=== PATIENT | female | born 1990 | race Hispanic/Latino ===

== ENCOUNTER 2019-07-21 08:57 | Inpatient (IN) | payer SELFPAY ==
[~2019-07-21] VITALS: Ht 165.1 cm; Wt 61.2 kg
[2019-07-21] VITALS (32 sets, daily range): BP systolic 117–142; BP diastolic 67–95
[2019-07-21] MEDS ORDERED: SODIUM CHLORIDE 0.9% 1000ML 1,000 ML IV ONE ×2 (09:14→10:26)
[2019-07-21 09:47] LABS: BASOPHILS % (AUTO) 0.3 % (0.0-5.0); HEMATOCRIT 38.1 % (36-48); LYMPHOCYTES % (AUTO) 29.6 % (21.0-51.0); MEAN CORPUSCULAR HEMOGLOBIN 27.1 pg (27.0-33.0); MEAN CORPUSCULAR VOLUME 82.2 fL (79-99); MONOCYTES % (AUTO) 5.1 % (3.0-13.0); PLATELET COUNT (AUTO) 192 K/uL (130-400); RED BLOOD CELL COUNT(AUTO) 4.64 MIL/uL (4.00-5.50); RED CELL DISTRIBUTION WIDTH 13.7 % (11.0-15.5); WHITE BLOOD COUNT (AUTO) 7.1 K/uL (4.8-10.8)
[2019-07-21 09:56] LABS: CREATININE 0.7 mg/dL (0.5-1.5); POTASSIUM 3.6 mmol/L (3.5-5.1)
[2019-07-21 09:58] LABS: INR 1.04 (0.85-1.15); PROTHROMBIN TIME 10.9 SEC (9.6-11.6)
[2019-07-21 09:59] LABS: HCG,QUAL RESULT NEGATIVE (NEGATIVE)
[2019-07-21 10:02] LABS: ALBUMIN 3.7 g/dL (3.5-5.0); BILIRUBIN,TOTAL 0.8 mg/dL (0.2-1.0); TOTAL PROTEIN, SERUM 7.6 g/dL (6.0-8.3)
[2019-07-21 10:14] LABS: APPEARANCE,URINE CLOUDY (CLEAR); BILIRUBIN,URINE NEGATIVE (NEGATIVE); COLOR,URINE RED (YELLOW); GLUCOSE, URINE (UA) 500 mg/dL (NEGATIVE); KETONES,URINE >=80 mg/dL (NEGATIVE); LEUKOCYTE ESTERASE ,URINE MODERATE (NEGATIVE); NITRATE,URINE POSITIVE (NEGATIVE); OCCULT BLOOD,URINE LARGE (NEGATIVE); PROTEIN,URINE >=300 mg/dL (NEGATIVE)
[2019-07-21] MEDS ORDERED: INSULIN HUMULIN R 100 UNIT/ML 3ML ONE (10:25)
[2019-07-21 10:36] LABS: RBC,URINE TNTC /HPF (0-1)
[2019-07-21 10:36] LABS: ABG OXYGEN SATURATION 49.1 % (95.0-99.0); BASE EXCESS,VENOUS BLOOD GAS -11.7 (-2.0-3.0); HCO3,VENOUS BLOOD GAS 14.8 (21.0-28.0); PCO2,VENOUS BLOOD GAS 36 (32-45); PH,VENOUS BLOOD GAS 7.234 (7.350-7.450)
[2019-07-21 10:37] LABS: BACTERIA,URINE Moderate /HPF (None Seen)
[2019-07-21] MEDS ORDERED: SODIUM CHLORIDE 0.9% 1000ML 1,000 ML IV SCH (10:57)
[2019-07-21] MEDS ORDERED: DEXTROSE 5 %-0.45 % NACL 1,000 ML IV PRN (10:57)
[2019-07-21] MEDS ORDERED: ONDANSETRON HCL 4 MG/2 ML VIAL IV PRN (11:00)
[2019-07-21] MEDS ORDERED: ACETAMINOPHEN-CODEINE 300/30MG TAB PO PRN ×2 (11:00)
[2019-07-21] MEDS: INSULIN HUMULIN R 100 UNIT/ML 3ML IV SCH (11:00)
[2019-07-21] MEDS ORDERED: HYDRALAZINE HCL 20 MG/ML VIAL IV PRN (11:00)
[2019-07-21] MEDS ORDERED: POTASSIUM CHLORIDE 10MEQ/100ML 100 ML IV PRN (11:00)
[2019-07-21] MEDS ORDERED: CEFTRIAXONE SODIUM 1 GM ONE (11:25)
[2019-07-21] MEDS ORDERED: SODIUM CHLORIDE 0.9% 100 ML IV ONE (11:25)
[2019-07-21 11:46] LABS: HEMOGLOBIN A1C 13.7 % (4.0-6.0)
[2019-07-21 12:12] LABS: CARBON DIOXIDE 18 mmol/L (21-32); CHLORIDE 105 mmol/L (101-111); CREATININE 0.6 mg/dL (0.5-1.5); GLOMERULAR FILTR. RATE CALC 127 mL/min (>60); GLUCOSE,RANDOM 238 mg/dL (70-105); POTASSIUM 3.7 mmol/L (3.5-5.1); SODIUM SERUM 139 mmol/L (136-145); UREA NITROGEN, BLOOD 8 mg/dL (7-18)
[2019-07-21] MEDS ORDERED: INSULIN REGULAR, HUMAN 3ML 100 UNIT in SODIUM CHLORIDE 0.9% 99 ML IV PRN ×2 (14:15)
[2019-07-21] MEDS: ZOSYN 3.375GM+NS 50ML 50 ML IV SCH ×2 (14:25→21:57)
[2019-07-21] MEDS: SODIUM CHLORIDE 0.9% 1000ML 1,000 ML IV SCH ×2 (14:25→15:57)
[2019-07-21] MEDS ORDERED: MAGNESIUM 2GM PREMIX 50ML 50 ML IV ONE (14:41)
[2019-07-21] MEDS: D5W-1/2 NS/20MEQ KCL 1,000 ML IV SCH ×2 (17:10→22:35)
[2019-07-21 18:16] LABS: CREATININE 0.5 mg/dL (0.5-1.5); MAGNESIUM 1.8 mg/dL (1.80-2.40)
[2019-07-21] MEDS: FAMOTIDINE/PF 20 MG/2 ML VIAL IV SCH (21:56)
[2019-07-21] MEDS: MAGNESIUM 2GM PREMIX 50ML 50 ML IV PRN (22:05)
[2019-07-21 23:23] LABS: CREATININE 0.5 mg/dL (0.5-1.5); POTASSIUM 3.8 mmol/L (3.5-5.1)
[2019-07-22] VITALS (40 sets, daily range): BP systolic 114–148; BP diastolic 68–91
[2019-07-22 04:38] LABS: CREATININE 0.5 mg/dL (0.5-1.5); POTASSIUM 3.8 mmol/L (3.5-5.1)
[2019-07-22] MEDS: ZOSYN 3.375GM+NS 50ML 50 ML IV SCH ×3 (05:26→21:15)
[2019-07-22] MEDS: FAMOTIDINE/PF 20 MG/2 ML VIAL IV SCH (08:29)
[2019-07-22] MEDS: D5W-1/2 NS/20MEQ KCL 1,000 ML IV SCH (10:06)
[2019-07-22] MEDS ORDERED: ACETAMINOPHEN 325 MG TAB ONE (10:44)
[2019-07-22] MEDS ORDERED: ACETAMINOPHEN 325 MG TAB PO PRN (10:45)
[2019-07-22] MEDS: INSULIN HUMULIN R 100 UNIT/ML 3ML IV SCH (11:00)
[2019-07-22 12:14] LABS: CREATININE 0.4 mg/dL (0.5-1.5); POTASSIUM 3.4 mmol/L (3.5-5.1)
[2019-07-22 12:17] LABS: MAGNESIUM 1.5 mg/dL (1.80-2.40)
[2019-07-22] MEDS ORDERED: LIDOCAINE HCL-MPF 1% 2ML VIAL IV PRN (12:45)
[2019-07-22] MEDS ORDERED: POTASSIUM CHLORIDE 20MEQ/100ML 100 ML IV PRN (12:45)
[2019-07-22] MEDS ORDERED: POTASSIUM CHLORIDE 10% ELIXIR 20 MEQ/15 ML UDCUP PO PRN (12:45)
--- NOTE | 2019-07-22 13:00 | NUR ---
DR CASTELLANO OFFICE NUMBER CALLED; NO ANSWER AND GOES STRAIGHT TO [employer] WHICH STATES THEY WILL RETURN CALL IN LESS THAN [address] BAHENA MADE AWARE AND CHARGE NURSE MADE AWARE; NO FURTHER INSTRUCTIONS/ORDERS GIVEN AT THIS TIME. WILL RELAY INFORMATION TO ONCOMING NURSE
[2019-07-22] MEDS ORDERED: INSULIN HUMULIN 70/30 100 UNIT/ML 3ML SQ SCH (13:03)
[2019-07-22] MEDS: POTASSIUM CHLORIDE 20 MEQ ERTAB PO PRN ×2 (13:13→14:59)
[2019-07-22] MEDS: NS-20 MEQ KCL 1000ML 1,000 ML IV SCH ×2 (14:58→23:27)
[2019-07-22] MEDS: MAGNESIUM 2GM PREMIX 50ML 50 ML IV PRN (15:30)
--- NOTE | 2019-07-22 16:00 | NUR ---
DR BAHENA AT PATIENT BEDSIDE AND QUESTIONED PATIENT ABOUT SUICIDAL THOUGHTS; NO FAMILY MEMBERS IN ROOM; PATIENT STATES SHE IS STILL HAVING SUICIDAL THOUGHTS; PER DR BAHENA, CONTINUE 1:1 SITTER
[2019-07-22] MEDS: INSULIN HUMULIN R 100 UNIT/ML 3ML SQ SCH ×2 (16:26→21:18)
--- NOTE | 2019-07-22 18:15 | NUR ---
PATIENT TRANSFER PATIENT TRANSFERRED TO ROOM 308 AND REPORT GIVEN TO DENIA MED SURG NURSE; PATIENT'S MOTHER AT BEDSIDE
[2019-07-23] VITALS (7 sets, daily range): BP systolic 118–133; BP diastolic 73–84
[2019-07-23] MEDS: ZOSYN 3.375GM+NS 50ML 50 ML IV SCH ×3 (04:50→21:27)
[2019-07-23 05:07] LABS: BASOPHILS % (AUTO) 0.3 % (0.0-5.0); EOSINOPHILS % (AUTO) 3.4 % (0.0-8.0); HEMATOCRIT 29.3 % (36-48); LYMPHOCYTES % (AUTO) 38.5 % (21.0-51.0); MEAN CORPUSCULAR HEMOGLOBIN 27.3 pg (27.0-33.0); MEAN CORPUSCULAR HGB CONC 33.6 g/dL (32.0-36.0); MEAN CORPUSCULAR VOLUME 81.1 fL (79-99); MONOCYTES % (AUTO) 7.6 % (3.0-13.0); NEUTROPHILS % (AUTO) 50.2 % (40.0-77.0); NUCLEATED RED BLOOD CELLS 0.2 % (0.0-0.19); PLATELET COUNT (AUTO) 144 K/uL (130-400); RED BLOOD CELL COUNT(AUTO) 3.61 MIL/uL (4.00-5.50); WHITE BLOOD COUNT (AUTO) 3.7 K/uL (4.8-10.8)
[2019-07-23 05:17] LABS: CARBON DIOXIDE 22 mmol/L (21-32); CHLORIDE 111 mmol/L (101-111); CREATININE 0.5 mg/dL (0.5-1.5); GLOMERULAR FILTR. RATE CALC 156 mL/min (>60); GLUCOSE,RANDOM 157 mg/dL (70-105); PHOSPHORUS 3.2 mg/dL (2.5-4.9); POTASSIUM 3.8 mmol/L (3.5-5.1); SODIUM SERUM 142 mmol/L (136-145); UREA NITROGEN, BLOOD 2 mg/dL (7-18)
[2019-07-23] MEDS: INSULIN HUMULIN R 100 UNIT/ML 3ML SQ SCH ×4 (06:21→21:27)
[2019-07-23] MEDS: MAGNESIUM 2GM PREMIX 50ML 50 ML IV PRN (06:24)
[2019-07-23] MEDS: INSULIN HUMULIN 70/30 100 UNIT/ML 3ML SQ SCH (06:59)
[2019-07-23] MEDS: ENOXAPARIN SODIUM 40 MG/0.4 ML SYRINGE SQ SCH (09:00)
[2019-07-23] MEDS ORDERED: MAGNESIUM 2GM PREMIX 50ML 50 ML IV PRN (11:00)
[2019-07-23] MEDS: INSULIN HUMULIN R 100 UNIT/ML 3ML IV SCH (11:00)
[2019-07-23] MEDS: NS-20 MEQ KCL 1000ML 1,000 ML IV SCH ×2 (12:10→21:54)
--- NOTE | 2019-07-23 13:12 | NUR ---
RD NOTIFICATION DIET: 75GMCCD. PT NEWLY DIAGNOSED DIABETIC. PO INTAKE 100% AND HAS IMPROVING APPETITE PER PT. LBM: 07/19 NOTED. PT ON 1 TO 1 DUE TO SUICIDAL IDEATIONS. PT USUAL BODY WEIGHT IS 270# OF 1 YEAR AGO PER PT- EXPERIENCING UNINTENDED WEIGHT LOSS. RD PROVIDED DIABETIC MEDICAL NUTRITION THERAPY. PT AND MOTHER VERBALIZED UNDERSTANDING. EDUCATION MATERIALS PROVIDED TO TAKE HOME AND USE REFERENCE. RD RECOMMENDS CONTINUE CURRENT DIET OFFER GLUCERNA/ DIABETIC SNACKS BETWEEN MEALS EDUCATION MATERIALS PROVIDED RD WILL CONTINUE TO FOLLOW UP NEEDED, THANK YOU. Addendum: 07/23/19 at [address] Amended: Links added.
--- NOTE | 2019-07-23 13:18 | NUR ---
NUTRITION EDUCATION PT ON DUE TO SUICIDAL IDEATIONS. PT USUAL BODY WEIGHT IS 270# OF 1 YEAR AGO PER PT- EXPERIENCING UNINTENDED WEIGHT LOSS. RD PROVIDED DIABETIC MEDICAL NUTRITION THERAPY. PT AND MOTHER VERBALIZED UNDERSTANDING. EDUCATION MATERIALS PROVIDED TO TAKE HOME AND USE REFERENCE. Addendum: 07/23/19 at [address] Amended: Links added.
--- NOTE | 2019-07-23 18:04 | NUR ---
INITIAL: Met with pt and mother this afternoon to discuss dcp. Pt w eyes closed during assessment. Prior to admission pt was living w mom. She is independent w ambulation and ADLs. 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 Pt does not have any DME or receive services prior to admission. Per pt/mom dcp is for home. 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 Low income packet provided. CM to continue to follow and wait for Md recommendations. Addendum: 07/23/19 at 1808 by JELENA HUFFMAN Amended: Links added.
[2019-07-23] MEDS ORDERED: LACTULOSE 20 GM/30 ML UDCUP PO PRN (18:30)
[2019-07-23] MEDS: PAROXETINE HCL 20 MG TABLET PO SCH (21:28)
[2019-07-24 04:00] VITALS: BP 120/79
[2019-07-24] MEDS: ZOSYN 3.375GM+NS 50ML 50 ML IV SCH (04:40)
[2019-07-24] MEDS: NS-20 MEQ KCL 1000ML 1,000 ML IV SCH (04:40)
[2019-07-24 05:23] LABS: BASOPHILS % (AUTO) 0.4 % (0.0-5.0); EOSINOPHILS % (AUTO) 3.1 % (0.0-8.0); HEMATOCRIT 28.2 % (36-48); LYMPHOCYTES % (AUTO) 40.4 % (21.0-51.0); MEAN CORPUSCULAR HEMOGLOBIN 26.8 pg (27.0-33.0); MEAN CORPUSCULAR VOLUME 81.1 fL (79-99); MONOCYTES % (AUTO) 7.6 % (3.0-13.0); NEUTROPHILS % (AUTO) 48.5 % (40.0-77.0); PLATELET COUNT (AUTO) 145 K/uL (130-400); RED BLOOD CELL COUNT(AUTO) 3.47 MIL/uL (4.00-5.50); RED CELL DISTRIBUTION WIDTH 13.9 % (11.0-15.5); WHITE BLOOD COUNT (AUTO) 3.5 K/uL (4.8-10.8)
[2019-07-24 05:27] LABS: CREATININE 0.5 mg/dL (0.5-1.5); MAGNESIUM 1.5 mg/dL (1.80-2.40); POTASSIUM 3.9 mmol/L (3.5-5.1)
[2019-07-24] MEDS: INSULIN HUMULIN R 100 UNIT/ML 3ML SQ SCH ×2 (06:50→11:40)
[2019-07-24] MEDS: INSULIN HUMULIN 70/30 100 UNIT/ML 3ML SQ SCH (07:00)
[2019-07-24 07:17] VITALS: BP 127/85
[2019-07-24] MEDS: PAROXETINE HCL 20 MG TABLET PO SCH ×2 (08:49→11:36)
[2019-07-24] MEDS: ENOXAPARIN SODIUM 40 MG/0.4 ML SYRINGE SQ SCH ×2 (08:50→08:53)
[2019-07-24] MEDS: MAGNESIUM 2GM PREMIX 50ML 50 ML IV PRN (08:51)
[2019-07-24 10:47] VITALS: BP 140/84
[2019-07-24] MEDS: INSULIN HUMULIN R 100 UNIT/ML 3ML IV SCH (11:00)
--- NOTE | 2019-07-24 11:26 | NUR ---
DR BERNAL 1:1 ORDER: SPOKE TO NUZHAT/NURSE FOR DR Chavez REGARDING IF 1:1 ORDER CAN BE DCD, PENDING CB FROM DR Chavez
[2019-07-24] MEDS ORDERED: INSULIN HUMULIN 70/30 100 UNIT/ML 3ML SQ SCH ×2 (11:30→16:30)
[2019-07-24] MEDS ORDERED: EPOETIN ALFA 10,000 UNIT/ML VIAL SQ SCH (11:30)
--- NOTE | 2019-07-24 11:41 | NUR ---
RD FOLLOW UP RD RECEIVED MD CONSULT TO PROVIDE DIABETES NUTRITION EDUCATION, HOWEVER EDU WAS PROVIDED YESTERDAY 07/23/19. EDUCATION MATERIALS WERE ALSO PROVIDED. PLEASE CALL US AT EXT 1909 IF PT HAS ANY OTHER QUESTIONS OR CONCERNS. THANK YOU. Addendum: 07/24/19 at [address] Amended: Links added.
--- NOTE | 2019-07-24 11:45 | NUR ---
spoke to dr ordonez as per dr roland ok to dc one to one and cleared from his standpoint. send home with robert.
[2019-07-24] MEDS ORDERED: COMPOUND IV MISC 1 EACH IVSOLN MISC PRN (12:30)
--- NOTE | 2019-07-24 15:40 | NUR ---
DR BAHENA ROUNDS/AMA DR BAHENA ROUNDED AT THIS TIME AND EXPRESSED TO PT THAT HE RECOMMENDS STAYING ANOTHER DAY TO ADJUST INSULIN AND OBSERVE SUGAR LEVEL CHANGES WITH NEW INSULIN TO WHICH PT REFUSED TO STAY ANOTHER NIGHT AND STATED SHE "CANT" STAY "TRAPPED" HERE. DR BAHENA AND THIS NURSE ATTEMPTED TO REDIRECT PT AND PERSUADE PT TO STAY, EDUCATED ON RISKS OF LEAVING AMA, PT REFUSES. AMA FORM SIGNED AND PLACED IN CHART. MOTHER AT BEDSIDE
[2019-07-25] MEDS ORDERED: IRON SUCROSE COMPLEX 500 MG in SODIUM CHLORIDE 0.9% 250 ML IV SCH (09:00)
== END 2019-07-24 15:55 | disposition left against medical advice (07) | DRG 638 ==
LOC: EDH 08:57 → EDHIP 08:58 → 2BH 13:27 → 3BH 07-22 18:29
PROVIDERS: ADMIT Internal Medicine; ATTEND Internal Medicine
DX: E11.10 Type 2 diabetes mellitus with ketoacidosis without coma (principal); E87.1 Hypo-osmolality and hyponatremia; N17.9 Acute kidney failure, unspecified; N30.00 Acute cystitis without hematuria; R45.851 Suicidal ideations; E86.1 Hypovolemia; N93.9 Abnormal uterine and vaginal bleeding, unspecified; N92.0 Excessive and frequent menstruation with regular cycle; E83.42 Hypomagnesemia; F40.10 Social phobia, unspecified; D50.0 Iron deficiency anemia secondary to blood loss (chronic); Z88.8 Allergy status to other drugs, medicaments and biological substances; Z91.013 Allergy to seafood; Z87.891 Personal history of nicotine dependence; Z83.3 Family history of diabetes mellitus; Z82.49 Family history of ischemic heart disease and other diseases of the circulatory system
CPT/HCPCS: 36415; 36600; 76856; 80048; 80053; 81001; 81025; 82010; 82803; 82948; 83036; 83605; 83735; 84100; 84145; 85025; 85610; 85730; 86850; 86900; 86901; 87040; 87088; G0378; J0696; J0885; J1756; J1815; J2543; J3475; J3480; J3490; J7030; J7042

== ENCOUNTER 2025-06-08 21:34 | Inpatient (IN) | payer SELFPAY ==
[~2025-06-08] VITALS: Ht 167.6 cm; Wt 92.6 kg
[2025-06-08 21:51] LABS: ABG OXYGEN SATURATION 71.6 % (94.0-98.0); BASE EXCESS,VENOUS BLOOD GAS -27.3 (-2.0-3.0); DEVICE COMMENT LB,RN JOSE; HCO3,VENOUS BLOOD GAS 3.6 (22.0-29.0); PCO2,VENOUS BLOOD GAS 17 (38-54); PH,VENOUS BLOOD GAS < 6.960 (7.320-7.430); PO2,VENOUS BLOOD GAS 44.9 mmHg (23.0-48.0); TEMPERATURE, CELSIUS BG 37.0 CELSIUS (35.5-37.0); VENT MODE, BG RA (ROOM AIR)
--- NOTE | 2025-06-08 22:01 | EKG ---
[facility] Test Date: 2025-06-08 Test Time: 21:51:53 Pat Name: PEYTON SERRA Department: ED Room: 427 Gender: F Assisted Living Nursing Director: [id number] : 1990 Requested By: ALEXIS SANDS Order Number: [id number] Reading MD: Brant Leon Measurements Intervals [place] Rate: 113 P: 77 AR: 147 QRS: 92 QRSD: 109 T: 2 QT: 355 QTc: 487 Interpretive Statements Sinus tachycardia Probable left atrial enlargement No previous ECG available for comparison Electronically Signed On 06-10-2025 16:07:59 CDT by Brant Leon Please click the below link to view image of tracing.
[2025-06-08] MEDS: 0.9%NACL 1000ML 1,000 ML IV ONE (22:13)
[2025-06-08] MEDS: 0.9%NACL 1000ML 2,000 ML IV ONE (22:13)
[2025-06-08 22:15] LABS: IMMATURE GRANULOCYTE ABSOLUTE 0.15 K/uL (0-1); NUCLEATED RED BLOOD CELLS 0.0 % (0.0-0.19); PLATELET COUNT (AUTO) 319 K/uL (130-400); RED BLOOD CELL COUNT(AUTO) 4.50 MIL/uL (4.00-5.50); RED CELL DISTRIBUTION WIDTH 13.6 % (11.0-15.5); WHITE BLOOD COUNT (AUTO) 19.7 K/uL (4.8-10.8)
[2025-06-08] MEDS: CALCIUM GLUC 1GM 1 GM in 0.9%NACL 100ML 100 ML IV ONE (22:18)
[2025-06-08] MEDS ORDERED: VANCOMYCIN PROTOCOL PER PHARMACY IV SCH (22:30)
[2025-06-08] MEDS ORDERED: D5W-1/2 NS/20MEQ KCL 1,000 ML IV SCH (22:30)
[2025-06-08 22:34] LABS: ASPARTATE AMINOTRANSFERASE 11 U/L (10-37); CREATININE 1.8 mg/dL (0.5-1.0); GLOMERULAR FILTR. RATE CALC 37 mL/min (>90); SODIUM SERUM 133 mmol/L (136-145); TOTAL PROTEIN, SERUM 8.6 g/dL (6.0-8.3); UREA NITROGEN, BLOOD 27 mg/dL (7-18)
[2025-06-08 22:42] LABS: GLUCOSE,RANDOM 692 mg/dL (70-105)
[2025-06-08 22:48] LABS: INR 0.97 (0.85-1.15)
[2025-06-08] MEDS: 0.9%NACL 1000ML 1,000 ML IV SCH (22:55)
[2025-06-08] MEDS ORDERED: NS-20 MEQ KCL 1000ML 1,000 ML IV SCH (23:00)
--- NOTE | 2025-06-08 23:00 | ERN ---
General Chief Complaint: Hyperglycemia Stated Complaint: N/V X 2 DAYS, HYPERGLYCEMIA PER EMS, BG=HI Time Seen by MD: 21:37 Time Seen by Midlevel: 21:37 Source: patient, EMS History of Present Illness Initial Comments 34-year-old female with a past medical history of type 2 diabetes presents to the emergency department for evaluation of two days of nausea and vomiting. Patient initially thought she was experiencing a hangover but symptoms have not improved. Per EMS the glucometer is reading as high. Allergies: Coded Allergies: shellfish derived (Unverified Allergy, Severe, SWELLING, 07/21/19) swelling shrimp (Unverified Allergy, Severe, SWELLING, 07/21/19) of the throat iodine (Verified Allergy, Unknown, 07/21/19) Home Meds No Active Prescriptions or Reported Meds Past Medical History Past Medical History: Diabetes-Type II, Hypertension Past Surgical History: None ROS Dictation CONSTITUTIONAL: Negative except for HPI HEAD/FACE: Negative except for HPI EENT: Negative except for HPI RESPIRATORY: Negative except for HPI GASTROINTESTINAL/ABDOMINAL: Negative except for HPI GENITOURINARY: Negative except for HPI MUSCULOSKELETAL: Negative except for HPI INTEGUMENTARY: Negative except for HPI NEUROLOGICAL/PSYCH: Negative except for HPI HEMATOLOGIC/LYMPHATIC: Negative except for HPI All Systems Negative, Except as noted above. 13 point review of systems assessed and all negative except for above. Physical Exam Physical Exam Dictation Vital Signs reviewed General Appearance: Alert, ill-appearing, febrile Head and Face: non-traumatic. Eyes: PERRL, pink conjunctivas, eyelid no trauma, anterior chamber with arcus senilis. Ears: Pinnas intact and no signs of trauma or erythema ear canals clear and no discharge TM no erythema Nose: No discharge, no bleeding. Oropharynx: Mouth normal, tongue pink, pharynx clear,no erythema, tonsils no exudates, no abscesses noted, mucous membrane moist Neck: Supple, non-tender, no thyromegaly, no masses, no JVD, no bruits Breast:Deferred Chest:No tenderness, no crepitus, no paradoxical movement, no retractions Lungs:Clear, well-ventilated, symmetric, no rales, no wheezing, Kussmaul respirations Heart: Tachycardic, regular rhythm, no murmur, no gallops Vascular: no peripheral edema, Abdomen: Soft, positive bowel sounds, nondistended, no guarding, nontender, no rebound, no masses no hepatomegaly, no splenomegaly, no Tian's sign, no hernias. Rectal: Deferred Genital: Deferred Neurological: Normal speech, motor function intact, sensory function intact Musculoskeletal: Neck nontender, full range of motion, back nontender, full range of motion, Extremities: nontender, full range of motion Skin: Color pink, dry, no turgor, no rash, no lacerations, no abrasions, no contusions. Lymphatic: Deferred Results Laboratory and Microbiology Lab and Micro Result Laboratory Tests Test 06/08/25 21:50 06/08/25 22:03 Blood Gas Specimen Type Venous Arterial Blood Oxygen Saturation 71.6 % (94.0-98.0) L Venous Blood pH < 6.960 (7.320-7.430) Venous Blood pCO2 at Patient Temp 17 (38-54) *L Venous Blood pO2 at Patient Temp 44.9 mmHg (23.0-48.0) Venous Blood HCO3 3.6 (22.0-29.0) L Venous Blood Base Excess -27.3 (-2.0-3.0) L Venous Blood Total Hemoglobin 13.7 (12.0-16.0) Sodium (Blood Gas) 137 MMOL/L (136-145) Bedside Potassium (Blood Gas) 6.8 MMOL/L (3.4-4.5) *H Bedside Chloride (Blood Gas) 98 MMOL/L (98-107) Bedside Glucose (Blood Gas) > 660 MG/DL (65-95) *H Bedside Ionized Calcium (Blood Gas) 1.33 MMOL/L (1.15-1.33) Bedside Lactic Acid (Blood Gas) 3.04 MMOL/L (0.36-0.75) *H Blood Gas Temperature 37.0 CELSIUS (35.5-37.0) Blood Gas Vent Mode RA (ROOM AIR) FiO2 21.0 % Blood Gas Specimen Comment LB,RN NOHELIA White Blood Count 19.7 K/uL (4.8-10.8) H Red Blood Count 4.50 MIL/uL (4.00-5.50) Hemoglobin 12.7 g/dL (12.0-16.0) Hematocrit 43.1 % (36-48) Mean Corpuscular Volume 95.8 fL (79-99) Mean Corpuscular Hemoglobin 28.2 pg (27.0-33.0) Mean Corpuscular Hemoglobin Concent 29.5 g/dL (32.0-36.0) L Red Cell Distribution Width 13.6 % (11.0-15.5) Platelet Count 319 K/uL (130-400) Mean Platelet Volume 11.0 fL (7.5-10.5) H Immature Granulocyte % (Auto) 0.8 % (0-1) Neutrophils (%) (Auto) 90.5 % (40.0-77.0) H Lymphocytes (%) (Auto) 2.7 % (21.0-51.0) L Monocytes (%) (Auto) 5.6 % (3.0-13.0) Eosinophils (%) (Auto) 0.1 % (0.0-8.0) Basophils (%) (Auto) 0.3 % (0.0-5.0) Neutrophils # (Auto) 17.9 K/uL (1.8-7.7) H Lymphocytes # (Auto) 0.5 K/uL (1.0-4.8) L Monocytes # (Auto) 1.1 K/uL (0.1-1.0) H Eosinophils # (Auto) 0.01 K/uL (0.00-0.70) Basophils # (Auto) 0.05 K/uL (0.00-0.20) Absolute Immature Granulocyte (auto 0.15 K/uL (0-1) Nucleated Red Blood Cells 0.0 % (0.0-0.19) Prothrombin Time 10.3 SEC (9.6-11.6) Prothromb Time International Ratio 0.97 (0.85-1.15) Activated Partial Thromboplast Time 30.3 SEC (26.3-35.5) Sodium Level 133 mmol/L (136-145) L Potassium Level 6.7 mmol/L (3.5-5.1) *H Chloride Level 91 mmol/L (101-111) L Carbon Dioxide Level < 5 mmol/L (21-32) *L Blood Urea Nitrogen 27 mg/dL (7-18) H Creatinine 1.8 mg/dL (0.5-1.0) H Glomerular Filtration Rate Calc 37 mL/min (>90) Random Glucose 692 mg/dL (70-105) *H Whole Blood Ketones Quantitative 6.5 mmol/L (0.0-0.6) H Lactic Acid Level 3.3 mmol/L (0.8-2.5) H Total Calcium 8.9 mg/dL (8.5-10.1) Total Bilirubin 0.7 mg/dL (0.2-1.0) Direct Bilirubin 0.2 mg/dL (0.0-0.3) Aspartate Amino Transf (AST/SGOT) 11 U/L (10-37) Alanine Aminotransferase (ALT/SGPT) 21 U/L (12-78) Alkaline Phosphatase 145 U/L (50-136) H Troponin I High Sensitivity < 4 ng/L (4-50) L Total Protein 8.6 g/dL (6.0-8.3) H Albumin 4.1 g/dL (3.5-5.0) Lipase 12 U/L (16-77) L Labs Reviewed?: Yes MDM MDM: Differential diagnosis: Sepsis, DKA, HHS Rationale: Tests considered and ordered secondary to shared decision making include: Previous outside records reviewed: Old ER visits. Risk of complication and/or morbidity or mortality of patient management: None Medications-Per medication reconciliation Need for hospitalization: Patient does meet criteria for hospitalization. Need for emergency major/minor surgery: No There are no social concerns with this patient. Prescription drug management Prescriptions will include symptomatic care Patient's prior external medical records from other ER visits were reviewed by me as indicated. Prior testing and results from previous visits were reviewed. Prior tests were taken into account with medical decision making and resource utilization, independent historian/historians were used to obtain complete [facility] history. I independently interpreted the test that were performed, results were reviewed by me and considered findings on radiology if ordered. Medical management and examination interpretation discussions were had by me with other qualified healthcare professionals as indicated for the patient's care. ED Course Orders Procedure Category Date Status Time Cbc With Differential LAB 06/08/25 In Process 21:46 Basic Metabolic Panel LAB 06/08/25 Complete 21:46 Lipase LAB 06/08/25 Complete 21:46 Hepatic Function Panel LAB 06/08/25 Complete 21:46 Urinalysis Profile LAB 06/08/25 In Process 21:46 Blood Cult MJ 06/08/25 Logged 21:46 Lactic Acid LAB 06/08/25 Complete 21:46 12 Lead Ekg Tracing- EKG 06/08/25 Complete Technical 21:46 Troponin I High LAB 06/08/25 Complete Sensitivity 21:46 Testing, LAB 06/08/25 In Process Serum Hcg 21:46 Ketone Blood LAB 06/08/25 Complete Quantitative 21:46 Venous Blood Gas + RT 06/08/25 Transmitted 21:46 Venous Blood Gas Plus LAB 06/08/25 Complete 21:50 0.9%Nacl 1000ml (Ns PHA 06/08/25 Complete 1000ml) 22:00 0.9%Nacl 1000ml (Ns PHA 06/08/25 Complete 1000ml) 22:00 Pt And Ptt LAB 06/08/25 Complete 21:56 Calcium Gluc 1gm PHA 06/08/25 In Process (Calcium Gluc 1gm 22:00 Chest 1vw RAD 06/08/25 Taken 22:00 Vancomycin Protocol PHA 06/08/25 Logged (Vancomycin Protocol 22:30 Cefepime Hcl 1 Gm PHA 06/08/25 In Process Vial (Maxipime 1 Gm Vi 22:30 Dka Prtcl:Restrict To CPOE 06/08/25 Transmitted Icu/Ccu 22:21 Dka Protcl:Dc All CPOE 06/08/25 Transmitted Meds/Feeding 22:21 Dka Protocol: Bmp Q4h CPOE 06/08/25 Transmitted Until 22:21 0.9%Nacl 1000ml (Ns PHA 06/08/25 In Process 1000ml) 22:30 D5w-1/2 Ns/20meq Kcl PHA 06/08/25 In Process (D5w-1/2 Ns/20meq K 22:30 Ns-20 Meq Kcl 1000ml PHA 06/08/25 In Process (Ns-20 Meq Kcl 1000 23:00 Magnesium 2gm Premix PHA 06/08/25 In Process 50ml (Magnesium 2gm 22:30 Insulin Regular, PHA 06/08/25 In Process Human 3ml (Humulin R 22:30 Dka Protocol: Bs, Vs, CPOE 06/08/25 Transmitted Neuro 22:21 Dextrose 5 %-0.45 % PHA 06/08/25 In Process Nacl (D5 1/2ns) 22:30 Nurse Driven [place] JAN 06/08/25 In Process Removal Pro 22:38 Vancomycin 2gm/500 Ml PHA 06/08/25 In Process Bag (Vancomycin 2g 23:00 Current Medications Medications (Trade) Dose Ordered Sig/Eric Route PRN Reason Start Time Stop Time Status Last Admin Dose Admin Calcium Gluconate 1 gm/Sodium Chloride 110 ml @ 110 mls/hr ONCE ONCE IV 06/08/25 22:00 06/08/25 22:59 06/08/25 22:18 Cefepime HCl (MAXipime 1 GM vial) 1 gm Q12H IVPB 06/08/25 22:30 06/18/25 22:29 06/08/25 22:52 Dextrose/Sodium Chloride 1,000 ml @ 0 mls/hr AD IV 06/08/25 22:30 07/08/25 22:29 Insulin Human Regular 100 unit/ Sodium Chloride 101 ml @ 0 mls/hr PROTOCOL IV 06/08/25 22:30 07/08/25 22:29 Magnesium Sulfate 50 ml @ 0 mls/hr PROTOCOL IV 06/08/25 22:30 07/08/25 22:29 Potassium Chloride/Dextrose/ Sod Cl 1,000 ml @ 0 mls/hr AD IV 06/08/25 22:30 07/08/25 22:29 Potassium Chloride/Sodium Chloride 1,000 ml @ 0 mls/hr PROTOCOL IV 06/08/25 23:00 07/08/25 22:59 Sodium Chloride 1,000 ml @ 0 mls/hr ONCE ONCE IV 06/08/25 22:00 06/08/25 22:02 DC 06/08/25 22:13 Sodium Chloride 1,000 ml @ 200 mls/hr PROTOCOL IV 06/08/25 22:30 07/08/25 22:29 06/08/25 22:55 Sodium Chloride 2,000 ml @ 0 mls/hr Q0M ONCE IV 06/08/25 22:00 06/08/25 22:02 DC 06/08/25 22:13 Vancomycin HCl 500 ml @ 250 mls/hr ONCE ONCE IV 06/08/25 23:00 06/09/25 00:59 Vancomycin HCl (Vancomycin Protocol) 1 each AD IV 06/08/25 22:30 06/22/25 22:29 UNV Vital Signs Date Time Temp Pulse Resp B/P (MAP) Pulse Ox O2 Delivery O2 Flow Rate FiO2 06/08/25 22:52 116 30 159/87 99 Room Air* 0 21 10/10/25 22:22 117 32 153/96 100 Room Air* 0 21 06/08/25 22:08 116 30 98 Room Air* 0 21 06/08/25 22:00 99.1 117 29 136/83 98 Room Air 0 Procedure Dictation Total critical care time: Approximately 45 minutes Due to a high probability of clinically significant, life threatening deterioration, the patient required my highest level of preparedness to int ervene emergently and I personally spent this critical care time directly and personally managing the patient. This critical care time included obtaining a history; examining the patient; pulse oximetry; ordering and review of studies; arranging urgent treatment with development of a management plan; evaluation of patient's response to treatment; frequent reassessment; and, discussions with other providers. This critical care time was performed to assess and manage the high probability of imminent, life-threatening deterioration that could result in multi-organ failure. It was exclusive of separately billable procedures and treating other patients and teaching time. Please see MDM section and the rest of the note for further information on patient assessment and treatment. DX & DISP Disposition: Inpatient Departure Impression: Primary Impression: Sepsis Additional Impressions: DKA (diabetic ketoacidosis), Leukocytosis, JAYLIN (acute kidney injury), Hyperkalemia Critical Time: 45 minutes Condition: Stable Scripts No Active Prescriptions or Reported Meds Referrals: SELF,REFERRAL (PCP) I have reviewed the case, and I agree with, Diagnosis and Plan I performed the substantive portion of the visit. I have reviewed and personally made and approve the management plan that is documented in the note by myself or the CINDI. I acknowledge for responsibility for the patient's management plan. ALEXIS SANDS PAC Jun 08, 2025 23:00
--- NOTE | 2025-06-08 23:01 | HP ---
History of Present Illness Reason for Visit: n/v Referring MD: Self History of Present Illness Ms. Monae is a 34-year-old female that was seen and examined today on 06/08/2025. Patient is a good historian of personal health Patient reports that she came to the emergency department with a chief complaint of nausea and vomiting. Onset was two days ago. Location is abdominal. Duration is on and off. Character is described as watery. There was no alleviating factors. The symptoms are aggravated with eating or drinking. Patient reports associated elevated glucose. Today in the emergency department WBCs 19.7, left shift neutrophils 90.5%, potassium 6.7, BUN 27, creatinine 1.8, glucose 682 mg/dL, lactic acid 3.3, ketones 6.5, urinalysis has elevated ketones 150, ABG shows pH 6.960. Additionally vital signs showed heart rate of 117, respirations 29, together with WBCs of 19.7 lactic acid of 3.3 patient met clinical sepsis criteria although most likely this is a DKA presentation patient will be treated with a empiric antibiotic therapy and we will deescalate antimicrobial therapy if blood cultures negative. Past Medical History Patient History: Cardiovascular disease Grandfather Diabetes mellitus FATHER BROTHER BROTHER Hypertension FATHER ADDITIONAL PAST MEDICAL HISTORY: [Diabetes mellitius type2 diagnosed at the age of 28, hypertension] SOCIAL HISTORY: [Negative for tobacco use. Patient drinks alcohol every other day usually four five shots of vodka. Patient admits to daily marijuana use. Patient denies any other illegal drug use. Patient is typically independent of all her ADLs. Patient lives with her , John Mora. Patient denies difficulty paying her bills.] SURGICAL HISTORY: [Denies] Review of Systems General: No Fever, No Chills, No Night Sweats, No Fatigue, No Malaise, No Appetite, No Other HEENT: No Head Aches, No Visual Changes, No Eye Pain, No Ear Pain, No Dysphasia, No Sinus Congestion, No Post Nasal Drip, No Sore Throat, No Other Pulmonary: No Dyspnea, No Cough, No Pleuritic Chest Pain, No Other Cardiovascular: No: Chest Pain, Palpitations, Orthopnea, Paroxysmal Noc. Dyspnea, Edema, Lt Headedness, Other Gastrointestinal: Nausea, Vomiting; No: Abdominal Pain, Diarrhea, Constipation, Melena, Hematochezia, Other Genitourinary: No Dysuria, No Frequency, No Incontinence, No Hematuria, No Retention, No Other Musculoskeletal: No: other, neck pain, shoulder pain, arm pain, back pain, hand pain, leg pain, foot pain Skin: No Urticaria, No Rash, No Other Neurological: No: Weakness, Numbness, Incoordination, Change in speech, Confusi on, Seizures, Other Allergies: Coded Allergies: shellfish derived (Unverified Allergy, Severe, SWELLING, 07/21/19) swelling shrimp (Unverified Allergy, Severe, SWELLING, 07/21/19) of the throat iodine (Verified Allergy, Unknown, 07/21/19) No Active Prescriptions or Reported Meds Exam Vital Signs Vital Signs Date Time Temp Pulse Resp B/P (MAP) Pulse Ox O2 Delivery O2 Flow Rate FiO2 06/08/25 22:52 116 30 159/87 99 Room Air* 0 21 06/08/25 22:00 99.1 General Appearance: Alert, Oriented X3, Cooperative, moderate distress HEENT: Atraumatic, EOMI Respiratory: Clear to auscultation, Normal air movement, NL respiratory effort, Other (Positive tachypnea) Cardiovascular: Normal S1, Normal S2, Other (Positive tachycardia) Abdominal: Normal bowel sounds, Soft, No tenderness Extremities: No edema Skin: No significant lesion Neuro: Normal speech, Strength at 5/5 X4 ext, Sensation intact, Cranial nerves 3-12 NL Psych/Mental Status: Mental status NL, Mood NL, Thoughts/Content NL Assessment/Plan ASSESSMENT: [ Diabetic ketoacidosis, POA Sepsis, POA, by clinical sepsis criteria, heart rate 117, WBCs 19.7, respirations 29, lactic acid 3.3 Leukocytosis, POA Hyperkalemia, POA Hyperlactatemia, POA JAYLIN versus CKD, POA, last known baseline creatinine is from 2019 hypertension PLAN: [ Admit patient to intensive care unit as inpatient status. Place patient on telemetry monitoring. Patient will be followed by critical care service. DKA: Electrolytes, magnesium, phosphorus every 4 hours Bedside glucose every hour If potassium level above 5.3 check potassium every 2 hours Insulin drip per DKA protocol IV fluids per DKA protocol Potassium replacement per DKA protocol Magnesium replacement per hospital protocol Phosphorus replenishment per hospital DKA protocol Bicarbonate replenishment by hospital DKA protocol Keep patient n.p.o. Consider resuming diet once patient's anion gap is 14 or less Sepsis, leukocytosis, hyperlactatemia: Patient received fluid resuscitation with 0.9% NS 3 L IV in the emergency department Empiric antibiotic therapy with Zosyn Check procalcitonin, follow up with the results Check lactic acid, in a.m. follow up with the results Check blood culture, follow up with the results Reviewed patient's urinalysis which was unremarkable Reviewed patient's chest x-ray which was unremarkable Deescalate empiric antibiotic therapy if blood culture negative and no other sources of infection are identified. Hyperkalemia: Monitor patient's labs per DKA protocol JAYLIN versus CKD: Calculate FENA Check urine sodium, creatinine, osmolality Avoid nephrotoxic agents when possible Renally dose all medications when possible Consider consulting Nephrology service if any worsening renal function or evidence of ATN. Monitor patient's labs. Weight patient daily. Monitor intake and output. Hypertension: Consider resuming home medications once they have been reconciled. At time of admission home medications has been reconciled. For now: Hydralazine 10 mg IV every 4 hours for systolic blood pressure greater than 160 mmHg GI prophylaxis, Protonix DVT prophylaxis, heparin Critical Care Time: I spent ___51___ minutes of critical care time with the patient. I reviewed lab work, change the patient's medication, and coordinated protocol in the event of tachycardia or desaturation. The patient status remains unchanged ADVANCED CARE PLANNING 1. Which of the following were discussed? Hospice Care - Yes Therapeutic options - yes Advance Directives - Yes - patient states he does not have any advance directives in place at this time, however has been, John can make decisions for her if she becomes unable. Other discussions - patient wishes to remain a full code at this time 2. Discussed with who? Patient 3. Voluntary nature of this service was explained to the patient? Yes 4. Amount of time spent - ___16 minutes____ 5. Reviewed by Physician? (if this service was performed by NPP) Yes This document was generated in part using voice recognition software, occasional wrong word or sound alike substitutions may have occurred due to the inherent limitations of voice recognition software. Read the chart carefully and recognize using context, where the substitutions have occurred. Although every effort was made to edit the content, switching operator and typing errors may occur ATTESTATION BY PHYSICIAN I have seen and examined the patient. I reviewed the documentation, medical decision making, and treatment plan as noted by the mid-level provider above. I agree with the findings and plan of care. ] CARLY DE [facility] Jun 08, 2025 23:01
[2025-06-08 23:07] LABS: APPEARANCE,URINE CLEAR (CLEAR); GLUCOSE, URINE (UA) >=1000 mg/dL (NEGATIVE); LEUKOCYTE ESTERASE ,URINE NEGATIVE Leu/uL (NEGATIVE); NITRATE,URINE NEGATIVE (NEGATIVE); OCCULT BLOOD,URINE +- (TRACE) (NEGATIVE); SQUAMOUS EPITHELIAL CELL,UR RARE /HPF (0-2); YEAST,URINE BUDDING RARE /HPF (None Seen)
[2025-06-08] MEDS: INSULIN REGULAR, HUMAN 3ML 100 UNIT in 0.9%NACL 100ML 100 ML IV SCH (23:14)
--- NOTE | 2025-06-08 23:17 | HMCIMG ---
EXAM: CR Chest, 1 view CLINICAL HISTORY: Sepsis. COMPARISON: None provided. FINDINGS: The lungs show no infiltrates or other acute findings. No pleural effusion or pneumothorax. The cardiomediastinal silhouette is within normal limits. No acute osseous abnormality. IMPRESSION: No acute cardiopulmonary process is evident. /[place]
--- NOTE | 2025-06-08 23:28 | NUR ---
CRITICAL CARE CALLED FOR CONSULT.
[2025-06-09] VITALS (89 sets, daily range): BP systolic 121–158; BP diastolic 66–88; PULSE 86–120; RESP 14–29; TEMP 98–99.4; O2SAT 100
[2025-06-09] MEDS: VANCOMYCIN 2GM/500 ML BAG 500 ML IV ONE (00:09)
[2025-06-09] MEDS: LACTATED RINGERS 1000ML 1,000 ML IV ONE (00:10)
--- NOTE | 2025-06-09 00:40 | NUR ---
ARRIVED AT BEDSIDE.
[2025-06-09] MEDS ORDERED: LACTULOSE 20 GM/30 ML UDCUP PO PRN (01:00)
[2025-06-09 01:40] LABS: CREATININE,URINE RANDOM 14.19 mg/dL (30-135)
[2025-06-09] MEDS: ZOSYN 3.375GM +NS 50ML IV SCH (02:23)
[2025-06-09] MEDS: LACTATED RINGERS 1000ML 1,000 ML IV SCH (02:23)
--- NOTE | 2025-06-09 02:57 | CONS ---
[facility] CONSULTATION NOTE Date Patient Seen: Jun 09, 2025 Time of Visit: 02:46 Supervising Physician: Dr Henrik Pope Reason for Consultation: DKA Consulting Physician: Hospitalist Outpatient Specialists: [ ] Inpatient Consults: [ ] PROBLEM LIST: Diabetic ketoacidosis, POA High anion gap metabolic acidosis, POA Electrolyte abnormality, POA DM type 1, POA Hyperkalemia, POA Hyponatremia, POA Acute kidney injury, from volume depletion, POA Leukocytosis, likely from volume depletion, afebrile, UA negative for nitrites and leuko esterase, chest x-ray clear for infiltrates, POA Alcohol use, per patient she drinks vodka almost 1 L prior to admission Intractable nausea and vomiting PLAN: Continue ICU routine care NPO for now except ice chips Continue insulin drip Continue IV fluids Serial BMP per DKA protocol Replete electrolyte accordingly Monitor temperature curve Treat fever aggressively CBC, CMP, magnesium level daily HPI: 34-year-old female with past medical history of DM type one who presented to ED with complaint of nausea and vomiting and diffuse abdominal pain and found to have DKA, high anion gap metabolic acidosis, acute kidney injury, and hyperkalemia. Patient was seen and examined in ICU with present at bedside. Apparently patient symptoms started two days ago with associated nausea and vomiting, and worsening diffuse abdominal pain. Prior to this one patient had also a drinking spree wherein she consumes almost1 L of vodka. Her symptoms did not improve so she decided to come to ED for further medical evaluation. In ED her initial chemistry showed sodium of 133, potassium was 6.8, bicarb less than five, creatinine level of 1.8, and serum glucose above 600. UA was done and showed ketonuria, and her lactic acid was also elevated. Patient was subsequently started on insulin drip and was given3 L of IV bolus in ED. ICU consulted for critical care evaluation and DKA management. At present patient is hemodynamically stable, positive for ketone breaths, sinus tach on the monitor, not in acute respiratory distress, with adequate systolic blood pressure, afebrile, and with appropriate O2 saturation on room air. Patient denies any headache, chest pain, shortness of breath, fever, cough, but complains of extreme thirst, mild diffuse abdominal pain, and periodic nausea. PAST MEDICAL HX: see above PAST SURGICAL HX: noncontributory SOCIAL HISTORY: See HPI Coded Allergies: shellfish derived (Unverified Allergy, Severe, SWELLING, 07/21/19) swelling shrimp (Unverified Allergy, Severe, SWELLING, 07/21/19) of the throat iodine (Verified Allergy, Unknown, 07/21/19) REVIEW OF SYSTEMS: 12 point ROS reviewed with patient. Pertinent positives mentioned above. Otherwise negative. PHYSICAL EXAM: GENERAL: alert, weak, awake oriented x 3 HEENT: EOMI, Sclera non icteric, moist mucosa NECK: Supple, no JVD, trachea midline LUNGS: Clear breath sounds bilaterally. No wheezes, noticeable ketone breaths HEART: Sinus tach on the monitor Normal S1 and S2, without murmurs ABD: Mild diffuse abdominal discomfort EXT: No clubbing cyanosis or edema NEURO: Alert and oriented to person, follows commands Vital Signs (last 8hr) Date Time Temp Pulse Resp B/P (MAP) Pulse Ox O2 Delivery O2 Flow Rate FiO2 06/09/25 01:54 98.1 117 29 134/66 100 Room Air 06/09/25 01:39 119 26 142/78 100 Room Air 06/09/25 01:24 120 29 145/77 100 Room Air 06/09/25 00:37 118 30 158/87 100 Room Air* 0 21 06/08/25 23:24 111 30 148/69 99 Room Air* 0 21 06/08/25 22:52 116 30 159/87 99 Room Air* 0 21 06/08/25 22:22 117 32 153/96 100 Room Air* 0 21 06/08/25 22:08 116 30 98 Room Air* 0 21 06/08/25 22:00 99.1 117 29 136/83 98 Room Air 0 LABS: Hematology Labs: Test 06/08/25 22:03 Range/Units White Blood Count 19.7 H 4.8-10.8 K/uL Red Blood Count 4.50 4.00-5.50 MIL/uL Hemoglobin 12.7 12.0-16.0 g/dL Hematocrit 43.1 36-48 % Mean Corpuscular Volume 95.8 79-99 fL Mean Corpuscular Hemoglobin 28.2 27.0-33.0 pg Mean Corpuscular Hemoglobin Concent 29.5 L 32.0-36.0 g/dL Red Cell Distribution Width 13.6 11.0-15.5 % Platelet Count 319 130-400 K/uL Mean Platelet Volume 11.0 H 7.5-10.5 fL Immature Granulocyte % (Auto) 0.8 0-1 % Neutrophils (%) (Auto) 90.5 H 40.0-77.0 % Lymphocytes (%) (Auto) 2.7 L 21.0-51.0 % Monocytes (%) (Auto) 5.6 3.0-13.0 % Eosinophils (%) (Auto) 0.1 0.0-8.0 % Basophils (%) (Auto) 0.3 0.0-5.0 % Neutrophils # (Auto) 17.9 H 1.8-7.7 K/uL Lymphocytes # (Auto) 0.5 L 1.0-4.8 K/uL Monocytes # (Auto) 1.1 H 0.1-1.0 K/uL Eosinophils # (Auto) 0.01 0.00-0.70 K/uL Basophils # (Auto) 0.05 0.00-0.20 K/uL Absolute Immature Granulocyte (auto 0.15 0-1 K/uL Nucleated Red Blood Cells 0.0 0.0-0.19 % White Cell Morphology Comment See comments Red Blood Cell Morphology See comments Chemistry Labs: Test 06/09/25 02:14 06/09/25 01:48 06/08/25 22:03 Range/Units Lactic Acid Level 2.0 0.8-2.5 mmol/L Whole Blood Glucose 311 H 70-110 MG/DL Sodium Level 133 L 136-145 mmol/L Potassium Level 6.7 *H 3.5-5.1 mmol/L Chloride Level 91 L 101-111 mmol/L Carbon Dioxide Level < 5 *L 21-32 mmol/L Blood Urea Nitrogen 27 H 7-18 mg/dL Creatinine 1.8 H 0.5-1.0 mg/dL Glomerular Filtration Rate Calc 37 >90 mL/min Random Glucose 692 *H 70-105 mg/dL Whole Blood Ketones Quantitative 6.5 H 0.0-0.6 mmol/L Total Calcium 8.9 8.5-10.1 mg/dL Total Bilirubin 0.7 0.2-1.0 mg/dL Direct Bilirubin 0.2 0.0-0.3 mg/dL Aspartate Amino Transf (AST/SGOT) 11 10-37 U/L Alanine Aminotransferase (ALT/SGPT) 21 12-78 U/L Alkaline Phosphatase 145 H 50-136 U/L Troponin I High Sensitivity < 4 L 4-50 ng/L Total Protein 8.6 H 6.0-8.3 g/dL Albumin 4.1 3.5-5.0 g/dL Lipase 12 L 16-77 U/L Procalcitonin 2.22 H 0.05-0.5 ng/mL Serum Test, Qualitative NEGATIVE NEGATIVE Coagulation Labs: Test 06/08/25 22:03 Range/Units Prothrombin Time 10.3 9.6-11.6 SEC Prothromb Time International Ratio 0.97 0.85-1.15 Activated Partial Thromboplast Time 30.3 26.3-35.5 SEC DIAGNOSTICS / RADIOLOGY RESULTS: EXAM: CR Chest, 1 view CLINICAL HISTORY: Sepsis. COMPARISON: None provided. FINDINGS: The lungs show no infiltrates or other acute findings. No pleural effusion or pneumothorax. The cardiomediastinal silhouette is within normal limits. No acute osseous abnormality. IMPRESSION: No acute cardiopulmonary process is evident. PLAN NEURO: Minimize central acting medications as possible. Fall Precautions. Well lighted room through the day and minimize interruptions through the night to prevent acute delirium. PULMONARY: Supplemental 02 as needed Titrate Fio2 to keep Spo2 > or = 90% DuoNebs and CPT as needed IS hourly while awake for pulmonary hygiene CARDIOVASCULAR: Follow hemodynamics. Titrate vasopressor to keep MAP >65 or systolic blood pressure >95mmHg DIPS: Insulin drip LINES: PIV GI & NUTRITION: NPO except ice chips Continue nutritional support Aspirations precautions Prokinetic agents and laxatives as needed KIDNEYS & ELECTROLYTES: Strict monitoring of intake and output Daily weights Avoid nephrotoxic agents Monitor electrolytes and replace as needed Goal urine output of 30mL/hr or 0.5mL/kg/hr ENDOCRINE: Maintain blood glucose between 100-180 at all times. Insulin sliding scale for blood glucose management INFECTIOUS DISEASE: Trend temperature. Orr-culture if febrile. Micro: [ ] Antibiotics: [ ] HEMATOLOGY & COAGULATION: Monitor H&H. Keep Hgb > 7 Transfuse 1 unit of PRBC for Hgb < 7 Transfuse 1 pack of platelets of platelets < 20, 000 Watch for any signs and symptoms of bleeding SKIN: Pressure ulcer prevention per facility protocol Rehab: PT/OT Prophylaxis: GI: PPI DVT: SCDs, heparin subQ Code Status: Full Resuscitation Disposition: ICU Other: Total patient care time exceeds 35 minutes excluding all procedures. Supervising physician: GREGG Trinidad [facility] Jun 09, 2025 02:57
[2025-06-09 05:17] LABS: IMMATURE GRANULOCYTE ABSOLUTE 0.24 K/uL (0-1); NUCLEATED RED BLOOD CELLS 0.0 % (0.0-0.19); PLATELET COUNT (AUTO) 198 K/uL (130-400); RED BLOOD CELL COUNT(AUTO) 3.96 MIL/uL (4.00-5.50); RED CELL DISTRIBUTION WIDTH 13.5 % (11.0-15.5); WHITE BLOOD COUNT (AUTO) 16.5 K/uL (4.8-10.8)
[2025-06-09 05:38] LABS: CREATININE 1.2 mg/dL (0.5-1.0); GLOMERULAR FILTR. RATE CALC 61.0 mL/min (>90); GLUCOSE,RANDOM 166.0 mg/dL (70-105); PHOSPHORUS 2.2 mg/dL (2.5-4.9); SODIUM SERUM 145.0 mmol/L (136-145); UREA NITROGEN, BLOOD 21.0 mg/dL (7-18)
[2025-06-09] MEDS: DEXTROSE 5 %-0.45 % NACL 1,000 ML IV SCH ×2 (06:17→10:47)
[2025-06-09] MEDS: LACTATED RINGERS 1000ML IV ONE (06:20)
--- NOTE | 2025-06-09 06:20 | NUR ---
CARBON DIOXIDE NOTIFIED [employer] TAHA OF CO2 OF 7. PER [employer] GIVE ONE TIME 500 ML LR BOLUS AND START D5 1/2 NS AT 300 ML/HR
[2025-06-09 08:41] LABS: CREATININE 1.2 mg/dL (0.5-1.0); GLOMERULAR FILTR. RATE CALC 61.0 mL/min (>90); GLUCOSE,RANDOM 158.0 mg/dL (70-105); SODIUM SERUM 139.0 mmol/L (136-145); UREA NITROGEN, BLOOD 17.0 mg/dL (7-18)
--- NOTE | 2025-06-09 10:31 | PN ---
[facility] PROGRESS NOTE Date of Service: Jun 09, 2025 Time of Service: 10:27 SUBJECTIVE: Anion gap remains open this morning. She remains on insulin drip. Leukocytosis is improving on broad-spectrum IV antibiotics. REVIEW OF SYSTEMS CONSTITUTIONAL: Denies fevers, chills, or night sweats. No unintentional weight loss reported. NEUROLOGICAL: Denies headache, amaurosis fugax, motor weakness, sensory deficit, vertigo/spinning sensation, gait abnormalities, or tremors. ENT: No hearing loss, otalgia, otorrhea, rhinitis, rhinorrhea, hoarseness, or so re throat. CARDIOVASCULAR: Denies any exertional angina, dyspnea on exertion, orthopnea, paroxysmal nocturnal dyspnea, palpitations, life-threatening arrhythmias, claudication. PULMONARY: Denies any shortness of breath, cough, phlegm/sputum, hemoptysis, pleuritic chest pain. SLEEP: Denies morning headaches, daytime somnolence or napping. Denies difficulty falling asleep, staying asleep, waking from sleep. Denies knowledge of snoring. GASTROINTESTINAL: Denies any type of dysphagia to either liquids or solids. Denies nausea, vomiting, pyrosis, early satiety, abdominal pain, diarrhea, constipation, or changes in stool consistency or caliber. Denies coffee-ground emesis, hematemesis, hematochezia, or melanotic stools. GENITOURINARY: Denies frequency, urgency, nocturia, hematuria or incontinence (Storage/Irritative symptoms.) Low urinary stream, straining to void, urinary intermittency or hesitancy, splitting of the voiding stream, terminal dribbling. ENDOCRINOLOGIC: Denies polyuria, polydipsia, polyphagia or heat/cold intolerances. HEMATOLOGIC: Denies thrombophilia/previous clots, or coagulopathy/bleeding disorders. ONCOLOGIC: Denies personal history of malignancy. DERMATOLOGIC: Denies rashes or pruritus. PSYCHIATRIC: Denies any suicidal or homicidal ideation. Denies hallucinations. PHYSICAL EXAM GENERAL APPEARANCE: The patient is awake, alert, and oriented, in no acute cardiopulmonary distress. NEUROLOGICAL: Cranial nerves II-XII grossly intact. Motor is 5/5 in bilateral upper and lower extremities proximal to distal. No sensory deficits. HEENT: Face is symmetric. Pupils are equal and reactive. Extraocular movements are intact. NECK: Supple. No JVD. No thyromegaly. No submental, submandibular, pre- /postauricular, occipital or supraclavicular lymphadenopathy. CHEST: Normal chest expansion. No Telemetry. LUNGS: Absence of any rales, rhonchi or any wheezing. CARDIOVASCULAR: Regular. S1 and S2 normal. No appreciable rubs, murmurs or gallops. ABDOMEN: Soft, nontender, and nondistended. There is no rebound, voluntary guarding, or rigidity. : Deferred. No [place]. EXTREMITIES: Non-edematous and not cyanotic. No clubbing. Good capillary refill. SKIN: No skin breakdown. Vital Signs (last 8hr) Date Time Temp Pulse Resp B/P (MAP) Pulse Ox O2 Delivery O2 Flow Rate FiO2 06/09/25 06:24 109 21 140/83 100 Room Air 06/09/25 06:09 107 21 134/76 100 Room Air 06/09/25 05:54 112 21 131/73 100 Room Air 06/09/25 05:39 111 21 125/71 100 Room Air 06/09/25 05:24 110 21 129/72 100 Room Air 06/09/25 05:09 113 18 124/75 100 Room Air 06/09/25 04:54 111 20 128/77 100 Room Air 06/09/25 04:39 112 20 134/76 100 Room Air 06/09/25 04:24 114 20 126/73 100 Room Air 06/09/25 04:09 98.4 113 20 126/79 100 Room Air 06/09/25 04:00 100 Room Air* 0 21 06/09/25 03:54 113 21 130/77 100 Room Air 06/09/25 03:39 114 20 134/72 100 Room Air 06/09/25 03:24 118 19 133/79 100 Room Air 06/09/25 03:09 118 23 124/81 100 Room Air 06/09/25 02:54 119 26 126/81 100 Room Air 06/09/25 02:39 117 22 131/74 100 Room Air LABS: Laboratory: Test 06/09/25 10:00 06/09/25 08:24 06/09/25 04:44 06/08/25 22:46 Range/Units Whole Blood Glucose 149 H 70-110 MG/DL Sodium Level 139 136-145 mmol/L Potassium Level 3.9 3.5-5.1 mmol/L Chloride Level 110 101-111 mmol/L Carbon Dioxide Level 11 L 21-32 mmol/L Blood Urea Nitrogen 17 7-18 mg/dL Creatinine 1.2 H 0.5-1.0 mg/dL Glomerular Filtration Rate Calc 61 >90 mL/min Random Glucose 158 H 70-105 mg/dL Total Calcium 7.7 L 8.5-10.1 mg/dL White Blood Count 16.5 H 4.8-10.8 K/uL Red Blood Count 3.96 L 4.00-5.50 MIL/uL Hemoglobin 11.2 L 12.0-16.0 g/dL Hematocrit 36.7 36-48 % Mean Corpuscular Volume 92.7 79-99 fL Mean Corpuscular Hemoglobin 28.3 27.0-33.0 pg Mean Corpuscular Hemoglobin Concent 30.5 L 32.0-36.0 g/dL Red Cell Distribution Width 13.5 11.0-15.5 % Platelet Count 198 # 130-400 K/uL Mean Platelet Volume 10.6 H 7.5-10.5 fL Immature Granulocyte % (Auto) 1.5 H 0-1 % Neutrophils (%) (Auto) 84.4 H 40.0-77.0 % Lymphocytes (%) (Auto) 6.5 L 21.0-51.0 % Monocytes (%) (Auto) 7.5 3.0-13.0 % Eosinophils (%) (Auto) 0.0 0.0-8.0 % Basophils (%) (Auto) 0.1 0.0-5.0 % Neutrophils # (Auto) 13.9 H 1.8-7.7 K/uL Lymphocytes # (Auto) 1.1 1.0-4.8 K/uL Monocytes # (Auto) 1.2 H 0.1-1.0 K/uL Eosinophils # (Auto) 0.00 0.00-0.70 K/uL Basophils # (Auto) 0.02 0.00-0.20 K/uL Absolute Immature Granulocyte (auto 0.24 0-1 K/uL Nucleated Red Blood Cells 0.0 0.0-0.19 % Lactic Acid Level 1.6 0.8-2.5 mmol/L Phosphorus Level 2.2 L 2.5-4.9 mg/dL Magnesium Level 2.10 1.80-2.40 mg/dL Urine Color COLORLESS YELLOW Urine Appearance CLEAR CLEAR Urine pH 5.5 5.0-8.0 Urine Specific [place] 1.018 1.001-1.031 Urine Protein 20 H NEGATIVE mg/dL Urine Glucose (UA) >=1000 H NEGATIVE mg/dL Urine Ketones 150 H NEGATIVE mg/dL Urine Occult Blood +- (TRACE) H NEGATIVE Urine Nitrate NEGATIVE NEGATIVE Urine Bilirubin NEGATIVE NEGATIVE mg/dL Urine Urobilinogen 0.2 0.2-1.0 mg/dL Urine Leukocyte Esterase NEGATIVE NEGATIVE [place]/uL Urine RBC 0-1 0-1 /HPF Urine WBC 0-1 0-1 /HPF Urine Squamous Epithelial Cells RARE 0-2 /HPF Urine Bacteria None None Seen /HPF Urine Hyaline Casts 2-5 H 0-1 /LPF /LPF Urine Yeast RARE None Seen /HPF Urine Random Creatinine 14.19 L 30-135 mg/dL Urine Random Sodium 73 40-220 mmol/l Test 06/08/25 22:03 06/08/25 21:50 Range/Units White Cell Morphology Comment See comments Red Blood Cell Morphology See comments Prothrombin Time 10.3 9.6-11.6 SEC Prothromb Time International Ratio 0.97 0.85-1.15 Activated Partial Thromboplast Time 30.3 26.3-35.5 SEC Whole Blood Ketones Quantitative 6.5 H 0.0-0.6 mmol/L Total Bilirubin 0.7 0.2-1.0 mg/dL Direct Bilirubin 0.2 0.0-0.3 mg/dL Aspartate Amino Transf (AST/SGOT) 11 10-37 U/L Alanine Aminotransferase (ALT/SGPT) 21 12-78 U/L Alkaline Phosphatase 145 H 50-136 U/L Troponin I High Sensitivity < 4 L 4-50 ng/L Total Protein 8.6 H 6.0-8.3 g/dL Albumin 4.1 3.5-5.0 g/dL Lipase 12 L 16-77 U/L Procalcitonin 2.22 H 0.05-0.5 ng/mL Serum Test, Qualitative NEGATIVE NEGATIVE Blood Gas Specimen Type Venous Arterial Blood Oxygen Saturation 71.6 L 94.0-98.0 % Venous Blood pH < 6.960 *L 7.320-7.430 Venous Blood pCO2 at Patient Temp 17 *L 38-54 Venous Blood pO2 at Patient Temp 44.9 23.0-48.0 mmHg Venous Blood HCO3 3.6 L 22.0-29.0 Venous Blood Base Excess -27.3 L -2.0-3.0 Venous Blood Total Hemoglobin 13.7 12.0-16.0 Sodium (Blood Gas) 137 136-145 MMOL/L Bedside Potassium (Blood Gas) 6.8 *H 3.4-4.5 MMOL/L Bedside Chloride (Blood Gas) 98 98-107 MMOL/L Bedside Glucose (Blood Gas) > 660 *H 65-95 MG/DL Bedside Ionized Calcium (Blood Gas) 1.33 1.15-1.33 MMOL/L Bedside Lactic Acid (Blood Gas) 3.04 *H 0.36-0.75 MMOL/L Blood Gas Temperature 37.0 35.5-37.0 CELSIUS Blood Gas Vent Mode RA ROOM AIR FiO2 21.0 % Blood Gas Specimen Comment LB,RN NOHELIA Current Medications Medications (Trade) Dose Ordered Sig/Eric Route PRN Reason Start Time Stop Time Status Last Admin Dose Admin Acetaminophen (TYLenol 325MG TAB) 650 mg Q6H PRN PO TEMPERATURE GREATER THAN 101.5 06/09/25 01:00 07/09/25 00:59 Cefepime HCl (MAXipime 1 GM vial) 1 gm Q12H IVPB 06/08/25 22:30 06/18/25 22:29 06/08/25 22:52 1 GM Dextrose/Sodium Chloride 1,000 ml @ 0 mls/hr AD IV 06/08/25 22:30 07/08/25 22:29 Dextrose/Sodium Chloride 1,000 ml @ 300 mls/hr Q3H20M IV 06/09/25 06:30 07/09/25 06:29 06/09/25 06:17 300 MLS/HR Heparin Sodium (Porcine) (HEParin 5,000 UNIT VIAL) 5,000 unit BID SQ 06/09/25 09:00 07/09/25 08:59 06/09/25 08:27 5,000 UNIT Hydralazine HCl (APRESOLine 20MG INJ) 10 mg Q6H PRN IV For:SBP above 160;DBP above 90 06/09/25 01:00 07/09/25 00:59 Hydromorphone HCl (DiLAUDid 0.5MG INJ) 0.25 mg Q4H PRN IVP SEVERE PAIN (7-10) 06/09/25 01:00 06/14/25 00:59 Insulin Human Regular 100 unit/ Sodium Chloride 101 ml @ 0 mls/hr PROTOCOL IV 06/08/25 22:30 07/08/25 22:29 06/09/25 02:29 8.2 MLS/HR Lactated Ringer's 1,000 ml @ 350 mls/hr Q2H52M IV 06/09/25 00:00 07/09/25 00:00 06/09/25 04:42 350 MLS/HR Lactulose (Constulose 20gm/ 30ml Udcup) 20 gm BID PRN PO CONSTIPATION 06/09/25 01:00 07/09/25 00:59 Magnesium Sulfate 50 ml @ 0 mls/hr PROTOCOL IV 06/08/25 22:30 07/08/25 22:29 Ondansetron HCl (zoFRAN 4MG INJ) 4 mg Q6H PRN IV NAUSEA/VOMITING 06/09/25 01:00 07/09/25 00:59 Pantoprazole Sodium (PROTonix 40MG INJ) 40 mg DAILY IV 06/09/25 09:00 07/09/25 08:59 06/09/25 08:27 40 MG Piperacillin Sod/ Tazobactam Sod (Zosyn 3.375gm+NS 50ml) 3.375 gm Q12H IV 06/09/25 01:00 06/19/25 00:59 06/09/25 02:23 3.375 GM Potassium Chloride/Dextrose/ Sod Cl 1,000 ml @ 0 mls/hr AD IV 06/08/25 22:30 07/08/25 22:29 Potassium Chloride/Sodium Chloride 1,000 ml @ 0 mls/hr PROTOCOL IV 06/08/25 23:00 07/08/25 22:59 Sodium Chloride 1,000 ml @ 200 mls/hr PROTOCOL IV 06/08/25 22:30 07/08/25 22:29 06/08/25 22:55 200 MLS/HR Vancomycin HCl 250 ml @ 125 mls/hr Q24H IV 06/09/25 23:00 06/19/25 22:59 Vancomycin HCl (Vancomycin Protocol) 1 each AD IV 06/08/25 22:30 06/22/25 22:29 DIAGNOSTICS / RADIOLOGY: [ ] ASSESSMENT: Diabetic ketoacidosis, POA Sepsis, POA, by clinical sepsis criteria, heart rate 117, WBCs 19.7, respirations 29, lactic acid 3.3 Leukocytosis, POA Hyperkalemia, POA Hyperlactatemia, POA JAYLIN versus CKD, POA, last known baseline creatinine is from 2019 hypertension PLAN: Neurological: Hourly neurochecks Cardiovascular: MAP goal greater than 65 mmHg Monitor for arrhythmias and blood pressure Respiratory: Keep O2 sats greater than 92% Follow-up with pulm crit Gastrointestinal: Protonix 40 mg IV daily for prophylaxis Advance diet as tolerated Renal: Replete electrolytes as per protocol Trend electrolytes as per protocol Trend a.m. BNP Hemo/Onc: Daily CBC DVT prophylaxis with SCDs only due to hematemesis on outpatient Endocrine: Continue insulin drip Glucose checks as per Hypoglycemia protocol ID: Continue vanc and cefepime Follow up cultures Trend WBCs CODE STATUS: Full code Discussion: Case was discussed with the patient Case was discussed with bedside nurse Critical care Attention time: greater than 35 minutes SOL GOLDEN IV, MD Jun 09, 2025 10:31
--- NOTE | 2025-06-09 10:43 | PN ---
[facility] PROGRESS NOTE Date Patient Seen: Jun 09, 2025 Time of Visit: 10:43 Supervising Physician: Gavin BROWN MD Consulting Physician: Hospitalist Outpatient Specialists: [ ] Inpatient Consults: [ ] PROBLEM LIST: Diabetic ketoacidosis, POA High anion gap metabolic acidosis, POA Electrolyte abnormality, POA DM type 1, POA Hyperkalemia, POA Hyponatremia, POA Acute kidney injury, from volume depletion, POA Leukocytosis, likely from volume depletion, afebrile, UA negative for nitrites and leuko esterase, chest x-ray clear for infiltrates, POA Alcohol use, per patient she drinks vodka almost 1 L prior to admission Intractable nausea and vomiting PLAN: Continue ICU routine care NPO for now except ice chips Continue insulin drip Continue IV fluids Serial BMP per DKA protocol Replete electrolyte accordingly Monitor temperature curve Treat fever aggressively CBC, CMP, magnesium level daily INTERVAL HISTORY: Pt is awake alert and oriented . denies any further nausea vomiting or abdominal pain. Agap closing but still kyaw at 18. She has been afebrile. Pt is hemodynamically stable. She reports she had episodes of Dysuria in the last few days. will send a gonorrhea and Chlamydia urine analysis. otherwise will continue with DKA protocol and, added lantus, Start clear liquid diet as tolerated. REVIEW OF SYSTEMS: 12 point ROS reviewed with patient. Pertinent positives mentioned above. Otherw ise negative. PHYSICAL EXAM: GENERAL: alert, weak, awake oriented x 3 HEENT: EOMI, Sclera non icteric, moist mucosa NECK: Supple, no JVD, trachea midline LUNGS: Clear breath sounds bilaterally. No wheezes, noticeable ketone breaths HEART: Sinus tach on the monitor Normal S1 and S2, without murmurs ABD: Mild diffuse abdominal discomfort EXT: No clubbing cyanosis or edema NEURO: Alert and oriented to person, follows commands Vital Signs (last 8hr) Date Time Temp Pulse Resp B/P (MAP) Pulse Ox O2 Delivery O2 Flow Rate FiO2 06/09/25 06:24 109 21 140/83 100 Room Air 06/09/25 06:09 107 21 134/76 100 Room Air 06/09/25 05:54 112 21 131/73 100 Room Air 06/09/25 05:39 111 21 125/71 100 Room Air 06/09/25 05:24 110 21 129/72 100 Room Air 06/09/25 05:09 113 18 124/75 100 Room Air 06/09/25 04:54 111 20 128/77 100 Room Air 06/09/25 04:39 112 20 134/76 100 Room Air 06/09/25 04:24 114 20 126/73 100 Room Air 06/09/25 04:09 98.4 113 20 126/79 100 Room Air 06/09/25 04:00 100 Room Air* 0 21 06/09/25 03:54 113 21 130/77 100 Room Air 06/09/25 03:39 114 20 134/72 100 Room Air 06/09/25 03:24 118 19 133/79 100 Room Air 06/09/25 03:09 118 23 124/81 100 Room Air 06/09/25 02:54 119 26 126/81 100 Room Air LABS: Hematology Labs: Test 06/09/25 04:44 06/08/25 22:03 Range/Units White Blood Count 16.5 H 4.8-10.8 K/uL Red Blood Count 3.96 L 4.00-5.50 MIL/uL Hemoglobin 11.2 L 12.0-16.0 g/dL Hematocrit 36.7 36-48 % Mean Corpuscular Volume 92.7 79-99 fL Mean Corpuscular Hemoglobin 28.3 27.0-33.0 pg Mean Corpuscular Hemoglobin Concent 30.5 L 32.0-36.0 g/dL Red Cell Distribution Width 13.5 11.0-15.5 % Platelet Count 198 # 130-400 K/uL Mean Platelet Volume 10.6 H 7.5-10.5 fL Immature Granulocyte % (Auto) 1.5 H 0-1 % Neutrophils (%) (Auto) 84.4 H 40.0-77.0 % Lymphocytes (%) (Auto) 6.5 L 21.0-51.0 % Monocytes (%) (Auto) 7.5 3.0-13.0 % Eosinophils (%) (Auto) 0.0 0.0-8.0 % Basophils (%) (Auto) 0.1 0.0-5.0 % Neutrophils # (Auto) 13.9 H 1.8-7.7 K/uL Lymphocytes # (Auto) 1.1 1.0-4.8 K/uL Monocytes # (Auto) 1.2 H 0.1-1.0 K/uL Eosinophils # (Auto) 0.00 0.00-0.70 K/uL Basophils # (Auto) 0.02 0.00-0.20 K/uL Absolute Immature Granulocyte (auto 0.24 0-1 K/uL Nucleated Red Blood Cells 0.0 0.0-0.19 % White Cell Morphology Comment See comments Red Blood Cell Morphology See comments Chemistry Labs: Test 06/09/25 10:00 06/09/25 08:24 06/09/25 04:44 06/08/25 22:03 Range/Units Whole Blood Glucose 149 H 70-110 MG/DL Sodium Level 139 136-145 mmol/L Potassium Level 3.9 3.5-5.1 mmol/L Chloride Level 110 101-111 mmol/L Carbon Dioxide Level 11 L 21-32 mmol/L Blood Urea Nitrogen 17 7-18 mg/dL Creatinine 1.2 H 0.5-1.0 mg/dL Glomerular Filtration Rate Calc 61 >90 mL/min Random Glucose 158 H 70-105 mg/dL Total Calcium 7.7 L 8.5-10.1 mg/dL Lactic Acid Level 1.6 0.8-2.5 mmol/L Phosphorus Level 2.2 L 2.5-4.9 mg/dL Magnesium Level 2.10 1.80-2.40 mg/dL Whole Blood Ketones Quantitative 6.5 H 0.0-0.6 mmol/L Total Bilirubin 0.7 0.2-1.0 mg/dL Direct Bilirubin 0.2 0.0-0.3 mg/dL Aspartate Amino Transf (AST/SGOT) 11 10-37 U/L Alanine Aminotransferase (ALT/SGPT) 21 12-78 U/L Alkaline Phosphatase 145 H 50-136 U/L Troponin I High Sensitivity < 4 L 4-50 ng/L Total Protein 8.6 H 6.0-8.3 g/dL Albumin 4.1 3.5-5.0 g/dL Lipase 12 L 16-77 U/L Procalcitonin 2.22 H 0.05-0.5 ng/mL Serum Test, Qualitative NEGATIVE NEGATIVE Coagulation Labs: Test 06/08/25 22:03 Range/Units Prothrombin Time 10.3 9.6-11.6 SEC Prothromb Time International Ratio 0.97 0.85-1.15 Activated Partial Thromboplast Time 30.3 26.3-35.5 SEC DIAGNOSTICS / RADIOLOGY RESULTS: [ ] PLAN NEURO: Minimize central acting medications as possible. Fall Precautions. Well lighted room through the day and minimize interruptions through the night to prevent acute delirium. PULMONARY: Supplemental 02 as needed Titrate Fio2 to keep Spo2 > or = 90% DuoNebs and CPT as needed IS hourly while awake for pulmonary hygiene CARDIOVASCULAR: Follow hemodynamics. Titrate vasopressor to keep MAP >65 or systolic blood pressure >95mmHg DIPS: Insulin drip LINES: PIV GI & NUTRITION: NPO except ice chips Continue nutritional support Aspirations precautions Prokinetic agents and laxatives as needed KIDNEYS & ELECTROLYTES: Strict monitoring of intake and output Daily weights Avoid nephrotoxic agents Monitor electrolytes and replace as needed Goal urine output of 30mL/hr or 0.5mL/kg/hr ENDOCRINE: Maintain blood glucose between 100-180 at all times. Insulin sliding scale for blood glucose management INFECTIOUS DISEASE: Trend temperature. Orr-culture if febrile. Micro: [ ] Antibiotics: [ ] HEMATOLOGY & COAGULATION: Monitor H&H. Keep Hgb > 7 Transfuse 1 unit of PRBC for Hgb < 7 Transfuse 1 pack of platelets of platelets < 20, 000 Watch for any signs and symptoms of bleeding SKIN: Pressure ulcer prevention per facility protocol Rehab: PT/OT Prophylaxis: GI: PPI DVT: SCDs, heparin subQ Code Status: Full Resuscitation Disposition: ICU Other: Total patient care time exceeds 35 minutes excluding all procedures. ATTESTATION BY PHYSICIAN I reviewed the documentation, medical decision making, and treatment plan as noted by the mid-level provider above. I agree with the findings and plan of care. Gavin Brown MD, [facility] Jun 09, 2025 10:43
[2025-06-09 13:38] LABS: CREATININE 1.0 mg/dL (0.5-1.0); GLOMERULAR FILTR. RATE CALC 76.0 mL/min (>90); GLUCOSE,RANDOM 128.0 mg/dL (70-105); SODIUM SERUM 140.0 mmol/L (136-145); UREA NITROGEN, BLOOD 13.0 mg/dL (7-18)
--- NOTE | 2025-06-09 15:04 | NUR ---
boom mortar mixer operator made aware of pt blood glucose of 93, currently on insulin drip , infusing d5 1/2ns at 175cc /hr, as per mortar mixer operator pt to have fluids changed to d5lr at 200cc/hr. follow insulin protocol.
[2025-06-09] MEDS: DEXTROSE 5%-LACTATED RINGERS 1,000 ML IV SCH (15:27)
[2025-06-09] MEDS: PoTASSium chl 10% ELIXIR 20MEQ 20 MEQ/15 ML UDCUP PO PRN (15:27)
[2025-06-09 17:29] LABS: CREATININE 1.0 mg/dL (0.5-1.0); GLOMERULAR FILTR. RATE CALC 76.0 mL/min (>90); GLUCOSE,RANDOM 206.0 mg/dL (70-105); SODIUM SERUM 140.0 mmol/L (136-145); UREA NITROGEN, BLOOD 11.0 mg/dL (7-18)
[2025-06-09] MEDS: PoTASSium chloRIDE 20MEQ ER 20 MEQ ERTAB PO PRN (18:43)
[2025-06-09 21:35] LABS: CREATININE 0.9 mg/dL (0.5-1.0); GLOMERULAR FILTR. RATE CALC 86.0 mL/min (>90); GLUCOSE,RANDOM 235.0 mg/dL (70-105); SODIUM SERUM 140.0 mmol/L (136-145); UREA NITROGEN, BLOOD 8.0 mg/dL (7-18)
[2025-06-09] MEDS ORDERED: VANCOMYCIN 1.25 GM/250 ML BAG 250 ML IV SCH (23:00)
[2025-06-10] VITALS (34 sets, daily range): BP systolic 130–167; BP diastolic 66–92; PULSE 75–110; RESP 9–25; TEMP 97.8–98.7; O2SAT 99–100
[2025-06-10 03:32] LABS: CREATININE 0.8 mg/dL (0.5-1.0); GLOMERULAR FILTR. RATE CALC 99.0 mL/min (>90); GLUCOSE,RANDOM 240.0 mg/dL (70-105); SODIUM SERUM 141.0 mmol/L (136-145); UREA NITROGEN, BLOOD 5.0 mg/dL (7-18)
[2025-06-10] MEDS: MAGNESIUM 2GM PREMIX 50ML 50 ML IV SCH (03:55)
--- NOTE | 2025-06-10 04:19 | NUR ---
Vipul Nonog PRINCIPAL SYSTEMS ENGINEER made aware of recent anion gap of 10, discussed whether to continue insulin drip or transition to subcutaneous insulin, as per Nonog PRINCIPAL SYSTEMS ENGINEER, keep insulin drip until bicarb level (co2), is above 22, right now bicarb level is 20, next cmp, mag is at 0700
[2025-06-10 07:11] LABS: ASPARTATE AMINOTRANSFERASE 10.0 U/L (10-37); CREATININE 0.8 mg/dL (0.5-1.0); GLOMERULAR FILTR. RATE CALC 99.0 mL/min (>90); GLUCOSE,RANDOM 224.0 mg/dL (70-105); SODIUM SERUM 142.0 mmol/L (136-145); TOTAL PROTEIN, SERUM 5.8 g/dL (6.0-8.3); UREA NITROGEN, BLOOD 4.0 mg/dL (7-18)
--- NOTE | 2025-06-10 08:52 | PN ---
[facility] PROGRESS NOTE Date Patient Seen: Jun 10, 2025 Time of Visit: 08:52 Supervising Physician: Marcelo Thorne MD Consulting Physician: Hospitalist Outpatient Specialists: [ ] Inpatient Consults: [ ] PROBLEM LIST: Diabetic ketoacidosis, POA, resolved AGAP of 10 High anion gap metabolic acidosis, POA Electrolyte abnormality, POA DM type 1, POA Hyperkalemia, POA Hyponatremia, POA Acute kidney injury, from volume depletion, POA Leukocytosis, likely from volume depletion, afebrile, UA negative for nitrites and leuko esterase, chest x-ray clear for infiltrates, POA Alcohol use, per patient she drinks vodka almost 1 L prior to admission Intractable nausea and vomiting PLAN: Advance diet as tolerated monitor for AGAP reopening follow BMP in am Replete electrolyte accordingly Monitor temperature curve Treat fever aggressively CBC, CMP, magnesium level daily may downgrade to medical floor INTERVAL HISTORY: No major overnight events. pt has closed her GAP now at a 10 . she has received her lantus SQ.Will continue ISS SQ. Pt may advance her diet as tolerated. she is stable to downgrade to medical floor. repeat CBC and BMP in am. Pt denies any further nausea and vomiting. tolerating clear liquids. REVIEW OF SYSTEMS: 12 point ROS reviewed with patient. Pertinent positives mentioned above. Otherwise negative. PHYSICAL EXAM: GENERAL: alert, weak, awake oriented x 3 HEENT: EOMI, Sclera non icteric, moist mucosa NECK: Supple, no JVD, trachea midline LUNGS: Clear breath sounds bilaterally. No wheezes, noticeable ketone breaths HEART: Sinus tach on the monitor Normal S1 and S2, without murmurs ABD: Mild diffuse abdominal discomfort EXT: No clubbing cyanosis or edema NEURO: Alert and oriented to person, follows commands Vital Signs (last 8hr) Date Time Temp Pulse Resp B/P (MAP) Pulse Ox O2 Delivery O2 Flow Rate FiO2 06/10/25 07:51 82 186/91 06/10/25 06:15 81 9 155/84 99 Room Air 06/10/25 06:00 89 19 167/92 99 Room Air 06/10/25 05:45 91 17 167/90 99 Room Air 06/10/25 05:30 75 20 139/72 98 Room Air 06/10/25 05:15 76 23 141/74 98 Room Air 06/10/25 05:00 80 22 141/73 98 Room Air 06/10/25 04:45 86 23 146/79 97 Room Air 06/10/25 04:30 92 14 142/74 98 Room Air 06/10/25 04:15 89 25 144/72 97 Room Air 06/10/25 04:00 100 Room Air* 0 21 06/10/25 04:00 98.2 87 20 156/79 98 Room Air 06/10/25 03:45 88 21 153/81 99 Room Air 06/10/25 03:30 75 19 136/75 98 Room Air 06/10/25 03:15 78 21 143/81 98 Room Air 06/10/25 03:00 86 20 147/82 98 Room Air 06/10/25 02:45 78 21 130/66 97 Room Air 06/10/25 02:30 79 21 132/72 97 Room Air 06/10/25 02:15 75 19 148/82 98 Room Air 06/10/25 02:00 79 20 141/81 98 Room Air 06/10/25 01:45 82 24 145/76 97 Room Air 06/10/25 01:30 86 15 163/84 98 Room Air 06/10/25 01:15 86 13 155/77 98 Room Air 06/10/25 01:00 91 16 163/83 98 Room Air 06/10/25 00:55 100 Room Air* 0 21 LABS: Hematology Labs: Test 06/09/25 04:44 06/08/25 22:03 Range/Units White Blood Count 16.5 H 4.8-10.8 K/uL Red Blood Count 3.96 L 4.00-5.50 MIL/uL Hemoglobin 11.2 L 12.0-16.0 g/dL Hematocrit 36.7 36-48 % Mean Corpuscular Volume 92.7 79-99 fL Mean Corpuscular Hemoglobin 28.3 27.0-33.0 pg Mean Corpuscular Hemoglobin Concent 30.5 L 32.0-36.0 g/dL Red Cell Distribution Width 13.5 11.0-15.5 % Platelet Count 198 # 130-400 K/uL Mean Platelet Volume 10.6 H 7.5-10.5 fL Immature Granulocyte % (Auto) 1.5 H 0-1 % Neutrophils (%) (Auto) 84.4 H 40.0-77.0 % Lymphocytes (%) (Auto) 6.5 L 21.0-51.0 % Monocytes (%) (Auto) 7.5 3.0-13.0 % Eosinophils (%) (Auto) 0.0 0.0-8.0 % Basophils (%) (Auto) 0.1 0.0-5.0 % Neutrophils # (Auto) 13.9 H 1.8-7.7 K/uL Lymphocytes # (Auto) 1.1 1.0-4.8 K/uL Monocytes # (Auto) 1.2 H 0.1-1.0 K/uL Eosinophils # (Auto) 0.00 0.00-0.70 K/uL Basophils # (Auto) 0.02 0.00-0.20 K/uL Absolute Immature Granulocyte (auto 0.24 0-1 K/uL Nucleated Red Blood Cells 0.0 0.0-0.19 % White Cell Morphology Comment See comments Red Blood Cell Morphology See comments Chemistry Labs: Test 06/10/25 07:05 06/10/25 06:51 06/09/25 04:44 06/08/25 22:03 Range/Units Whole Blood Glucose 211 H 70-110 MG/DL Sodium Level 142 136-145 mmol/L Potassium Level 3.3 L 3.5-5.1 mmol/L Chloride Level 111 101-111 mmol/L Carbon Dioxide Level 21 21-32 mmol/L Blood Urea Nitrogen 4 L 7-18 mg/dL Creatinine 0.8 0.5-1.0 mg/dL Glomerular Filtration Rate Calc 99 >90 mL/min Random Glucose 224 H 70-105 mg/dL Total Calcium 8.4 L 8.5-10.1 mg/dL Magnesium Level 2.00 1.80-2.40 mg/dL Total Bilirubin 0.3 0.2-1.0 mg/dL Aspartate Amino Transf (AST/SGOT) 10 10-37 U/L Alanine Aminotransferase (ALT/SGPT) 11 L 12-78 U/L Alkaline Phosphatase 88 50-136 U/L Total Protein 5.8 L 6.0-8.3 g/dL Albumin 2.5 L 3.5-5.0 g/dL Lactic Acid Level 1.6 0.8-2.5 mmol/L Phosphorus Level 2.2 L 2.5-4.9 mg/dL Whole Blood Ketones Quantitative 6.5 H 0.0-0.6 mmol/L Direct Bilirubin 0.2 0.0-0.3 mg/dL Troponin I High Sensitivity < 4 L 4-50 ng/L Lipase 12 L 16-77 U/L Procalcitonin 2.22 H 0.05-0.5 ng/mL Serum Test, Qualitative NEGATIVE NEGATIVE Coagulation Labs: Test 06/08/25 22:03 Range/Units Prothrombin Time 10.3 9.6-11.6 SEC Prothromb Time International Ratio 0.97 0.85-1.15 Activated Partial Thromboplast Time 30.3 26.3-35.5 SEC DIAGNOSTICS / RADIOLOGY RESULTS: [[facility] [address] [place] [address] IMAGING REPORT Signed PATIENT: PEYTON SERRA MR#: [id number] : 1990 SEX: F AGE: 34 LOCATION: [facility] ORDER 99 STATUS: [facility] ER REPORT#: [id number] SERVICE 99 REASON: sepsis ORDERING PHYSICIAN: ALEXIS SANDS PAC PROCEDURE: CXR1VW - CHEST 1VW EXAM: CR Chest, 1 view CLINICAL HISTORY: Sepsis. COMPARISON: None provided. FINDINGS: The lungs show no infiltrates or other acute findings. No pleural effusion or pneumothorax. The cardiomediastinal silhouette is within normal limits. No acute osseous abnormality. IMPRESSION: No acute cardiopulmonary process is evident. /[place] DICTATED BY: KIKO JACKSON Jr., MD DATE: 06/09/2515 ELECTRONICALLY SIGNED BY: KIKO JACKSON Jr., MD DATE: 06/09/2515 ] PLAN NEURO: Minimize central acting medications as possible. Fall Precautions. Well lighted room through the day and minimize interruptions through the night to prevent acute delirium. PULMONARY: Supplemental 02 as needed Titrate Fio2 to keep Spo2 > or = 90% DuoNebs and CPT as needed IS hourly while awake for pulmonary hygiene CARDIOVASCULAR: Follow hemodynamics. Titrate vasopressor to keep MAP >65 or systolic blood pressure >95mmHg DIPS: Insulin drip LINES: PIV GI & NUTRITION: NPO except ice chips Continue nutritional support Aspirations precautions Prokinetic agents and laxatives as needed KIDNEYS & ELECTROLYTES: Strict monitoring of intake and output Daily weights Avoid nephrotoxic agents Monitor electrolytes and replace as needed Goal urine output of 30mL/hr or 0.5mL/kg/hr ENDOCRINE: Maintain blood glucose between 100-180 at all times. Insulin sliding scale for blood glucose management INFECTIOUS DISEASE: Trend temperature. Orr-culture if febrile. Micro: [ ] Antibiotics: [ ] HEMATOLOGY & COAGULATION: Monitor H&H. Keep Hgb > 7 Transfuse 1 unit of PRBC for Hgb < 7 Transfuse 1 pack of platelets of platelets < 20, 000 Watch for any signs and symptoms of bleeding SKIN: Pressure ulcer prevention per facility protocol Rehab: PT/OT Prophylaxis: GI: PPI DVT: SCDs, heparin subQ Code Status: Full Resuscitation Disposition: TBD Other: Total patient care time exceeds 35 minutes excluding all procedures. ATTESTATION BY PHYSICIAN The patient has been seen and evaluated, the case has been discussed with the MANAGER STRATEGIC, I agree with the clinical findings and plan of care. Marcelo Thorne MD, [facility] Jun 10, 2025 08:52
[2025-06-10] MEDS ORDERED: GLUCAGON 1MG KIT 1 MG ML IM PRN (09:00)
[2025-06-10] MEDS ORDERED: DEXTROSE 50%-WATER 50 ML DISP.SYRIN IV PRN (09:00)
--- NOTE | 2025-06-10 09:31 | NUR ---
REPORT AND CARE GIVEN TO JAZ NURSE, PT AAOX3. NO DISTRESS NOTED, VITALS CHARTED.
--- NOTE | 2025-06-10 09:56 | NUR ---
received from icu via [facility] stable cond denies pain call castro with reach
[2025-06-10] MEDS ORDERED: AMLO-257 PO (10:31)
--- NOTE | 2025-06-10 10:56 | PN ---
[facility] PROGRESS NOTE Date of Service: Jun 10, 2025 Time of Service: 10:54 SUBJECTIVE: nion gap remains open this morning. She remains on insulin drip. Leukocytosis is improving on broad-spectrum IV antibiotics. 06/10 anion gap has closed. Patient has been transitioned to subcutaneous insulin. Patient remains on IV ceftriaxone empirically for UTI based on patient's HPI. Patient is tolerating clear liquid diet. REVIEW OF SYSTEMS CONSTITUTIONAL: Denies fevers, chills, or night sweats. No unintentional weight loss reported. NEUROLOGICAL: Denies headache, amaurosis fugax, motor weakness, sensory deficit, vertigo/spinning sensation, gait abnormalities, or tremors. ENT: No hearing loss, otalgia, otorrhea, rhinitis, rhinorrhea, hoarseness, or sore throat. CARDIOVASCULAR: Denies any exertional angina, dyspnea on exertion, orthopnea, paroxysmal nocturnal dyspnea, palpitations, life-threatening arrhythmias, claudication. PULMONARY: Denies any shortness of breath, cough, phlegm/sputum, hemoptysis, pleuritic chest pain. SLEEP: Denies morning headaches, daytime somnolence or napping. Denies difficulty falling asleep, staying asleep, waking from sleep. Denies knowledge of snoring. GASTROINTESTINAL: Denies any type of dysphagia to either liquids or solids. Denies nausea, vomiting, pyrosis, early satiety, abdominal pain, diarrhea, constipation, or changes in stool consistency or caliber. Denies coffee-ground emesis, hematemesis, hematochezia, or melanotic stools. GENITOURINARY: Denies frequency, urgency, nocturia, hematuria or incontinence ( Storage/Irritative symptoms.) Low urinary stream, straining to void, urinary intermittency or hesitancy, splitting of the voiding stream, terminal dribbling. ENDOCRINOLOGIC: Denies polyuria, polydipsia, polyphagia or heat/cold intolerances. HEMATOLOGIC: Denies thrombophilia/previous clots, or coagulopathy/bleeding disorders. ONCOLOGIC: Denies personal history of malignancy. DERMATOLOGIC: Denies rashes or pruritus. PSYCHIATRIC: Denies any suicidal or homicidal ideation. Denies hallucinations. PHYSICAL EXAM GENERAL APPEARANCE: The patient is awake, alert, and oriented, in no acute cardiopulmonary distress. NEUROLOGICAL: Cranial nerves II-XII grossly intact. Motor is 5/5 in bilateral upper and lower extremities proximal to distal. No sensory deficits. HEENT: Face is symmetric. Pupils are equal and reactive. Extraocular movements are intact. NECK: Supple. No JVD. No thyromegaly. No submental, submandibular, pre- /postauricular, occipital or supraclavicular lymphadenopathy. CHEST: Normal chest expansion. No Telemetry. LUNGS: Absence of any rales, rhonchi or any wheezing. CARDIOVASCULAR: Regular. S1 and S2 normal. No appreciable rubs, murmurs or gallops. ABDOMEN: Soft, nontender, and nondistended. There is no rebound, voluntary guarding, or rigidity. : Deferred. No [place]. EXTREMITIES: Non-edematous and not cyanotic. No clubbing. Good capillary refill. SKIN: No skin breakdown. Vital Signs (last 8hr) Date Time Temp Pulse Resp B/P (MAP) Pulse Ox O2 Delivery O2 Flow Rate FiO2 06/10/25 10:00 99 Room Air* 0 21 06/10/25 10:00 97.9 110 18 130/72 96 Room Air 06/10/25 09:00 98.8 84 20 160/74 99 Room Air 06/10/25 08:00 100 Room Air* 0 21 06/10/25 07:51 82 186/91 06/10/25 06:15 81 9 155/84 99 Room Air 06/10/25 06:00 89 19 167/92 99 Room Air 06/10/25 05:45 91 17 167/90 99 Room Air 06/10/25 05:30 75 20 139/72 98 Room Air 06/10/25 05:15 76 23 141/74 98 Room Air 06/10/25 05:00 80 22 141/73 98 Room Air 06/10/25 04:45 86 23 146/79 97 Room Air 06/10/25 04:30 92 14 142/74 98 Room Air 06/10/25 04:15 89 25 144/72 97 Room Air 06/10/25 04:00 100 Room Air* 0 21 06/10/25 04:00 98.2 87 20 156/79 98 Room Air 06/10/25 03:45 88 21 153/81 99 Room Air 06/10/25 03:30 75 19 136/75 98 Room Air 06/10/25 03:15 78 21 143/81 98 Room Air 06/10/25 03:00 86 20 147/82 98 Room Air LABS: Laboratory: Test 06/10/25 09:41 06/10/25 06:51 06/09/25 04:44 06/08/25 22:46 Range/Units Whole Blood Glucose 280 H 70-110 MG/DL Sodium Level 142 136-145 mmol/L Potassium Level 3.3 L 3.5-5.1 mmol/L Chloride Level 111 101-111 mmol/L Carbon Dioxide Level 21 21-32 mmol/L Blood Urea Nitrogen 4 L 7-18 mg/dL Creatinine 0.8 0.5-1.0 mg/dL Glomerular Filtration Rate Calc 99 >90 mL/min Random Glucose 224 H 70-105 mg/dL Total Calcium 8.4 L 8.5-10.1 mg/dL Magnesium Level 2.00 1.80-2.40 mg/dL Total Bilirubin 0.3 0.2-1.0 mg/dL Aspartate Amino Transf (AST/SGOT) 10 10-37 U/L Alanine Aminotransferase (ALT/SGPT) 11 L 12-78 U/L Alkaline Phosphatase 88 50-136 U/L Total Protein 5.8 L 6.0-8.3 g/dL Albumin 2.5 L 3.5-5.0 g/dL White Blood Count 16.5 H 4.8-10.8 K/uL Red Blood Count 3.96 L 4.00-5.50 MIL/uL Hemoglobin 11.2 L 12.0-16.0 g/dL Hematocrit 36.7 36-48 % Mean Corpuscular Volume 92.7 79-99 fL Mean Corpuscular Hemoglobin 28.3 27.0-33.0 pg Mean Corpuscular Hemoglobin Concent 30.5 L 32.0-36.0 g/dL Red Cell Distribution Width 13.5 11.0-15.5 % Platelet Count 198 # 130-400 K/uL Mean Platelet Volume 10.6 H 7.5-10.5 fL Immature Granulocyte % (Auto) 1.5 H 0-1 % Neutrophils (%) (Auto) 84.4 H 40.0-77.0 % Lymphocytes (%) (Auto) 6.5 L 21.0-51.0 % Monocytes (%) (Auto) 7.5 3.0-13.0 % Eosinophils (%) (Auto) 0.0 0.0-8.0 % Basophils (%) (Auto) 0.1 0.0-5.0 % Neutrophils # (Auto) 13.9 H 1.8-7.7 K/uL Lymphocytes # (Auto) 1.1 1.0-4.8 K/uL Monocytes # (Auto) 1.2 H 0.1-1.0 K/uL Eosinophils # (Auto) 0.00 0.00-0.70 K/uL Basophils # (Auto) 0.02 0.00-0.20 K/uL Absolute Immature Granulocyte (auto 0.24 0-1 K/uL Nucleated Red Blood Cells 0.0 0.0-0.19 % Lactic Acid Level 1.6 0.8-2.5 mmol/L Phosphorus Level 2.2 L 2.5-4.9 mg/dL Urine Color COLORLESS YELLOW Urine Appearance CLEAR CLEAR Urine pH 5.5 5.0-8.0 Urine Specific [place] 1.018 1.001-1.031 Urine Protein 20 H NEGATIVE mg/dL Urine Glucose (UA) >=1000 H NEGATIVE mg/dL Urine Ketones 150 H NEGATIVE mg/dL Urine Occult Blood +- (TRACE) H NEGATIVE Urine Nitrate NEGATIVE NEGATIVE Urine Bilirubin NEGATIVE NEGATIVE mg/dL Urine Urobilinogen 0.2 0.2-1.0 mg/dL Urine Leukocyte Esterase NEGATIVE NEGATIVE Kacey/uL Urine RBC 0-1 0-1 /HPF Urine WBC 0-1 0-1 /HPF Urine Squamous Epithelial Cells RARE 0-2 /HPF Urine Bacteria None None Seen /HPF Urine Hyaline Casts 2-5 H 0-1 /LPF /LPF Urine Yeast RARE None Seen /HPF Urine Random Creatinine 14.19 L 30-135 mg/dL Urine Random Sodium 73 40-220 mmol/l Test 06/08/25 22:03 06/08/25 21:50 Range/Units White Cell Morphology Comment See comments Red Blood Cell Morphology See comments Prothrombin Time 10.3 9.6-11.6 SEC Prothromb Time International Ratio 0.97 0.85-1.15 Activated Partial Thromboplast Time 30.3 26.3-35.5 SEC Whole Blood Ketones Quantitative 6.5 H 0.0-0.6 mmol/L Direct Bilirubin 0.2 0.0-0.3 mg/dL Troponin I High Sensitivity < 4 L 4-50 ng/L Lipase 12 L 16-77 U/L Procalcitonin 2.22 H 0.05-0.5 ng/mL Serum Test, Qualitative NEGATIVE NEGATIVE Blood Gas Specimen Type Venous Arterial Blood Oxygen Saturation 71.6 L 94.0-98.0 % Venous Blood pH < 6.960 *L 7.320-7.430 Venous Blood pCO2 at Patient Temp 17 *L 38-54 Venous Blood pO2 at Patient Temp 44.9 23.0-48.0 mmHg Venous Blood HCO3 3.6 L 22.0-29.0 Venous Blood Base Excess -27.3 L -2.0-3.0 Venous Blood Total Hemoglobin 13.7 12.0-16.0 Sodium (Blood Gas) 137 136-145 MMOL/L Bedside Potassium (Blood Gas) 6.8 *H 3.4-4.5 MMOL/L Bedside Chloride (Blood Gas) 98 98-107 MMOL/L Bedside Glucose (Blood Gas) > 660 *H 65-95 MG/DL Bedside Ionized Calcium (Blood Gas) 1.33 1.15-1.33 MMOL/L Bedside Lactic Acid (Blood Gas) 3.04 *H 0.36-0.75 MMOL/L Blood Gas Temperature 37.0 35.5-37.0 CELSIUS Blood Gas Vent Mode RA ROOM AIR FiO2 21.0 % Blood Gas Specimen Comment LB,RN NOHELIA Current Medications Medications (Trade) Dose Ordered Sig/Eric Route PRN Reason Start Time Stop Time Status Last Admin Dose Admin Acetaminophen (TYLenol 325MG TAB) 650 mg Q6H PRN PO TEMPERATURE GREATER THAN 101.5 06/09/25 01:00 07/09/25 00:59 Cefepime HCl (MAXipime 1 GM vial) 1 gm Q12H IVPB 06/08/25 22:30 06/09/25 10:49 DC 06/08/25 22:52 1 GM Ceftriaxone Sodium (Rocephin 2gm Inj) 2 gm Q24H IVPB 06/09/25 11:00 06/19/25 10:59 06/10/25 10:20 2 GM Dextrose (D50w) 50 ml AD PRN IV HYPOGLYCEMIA PROTOCOL 06/10/25 09:00 07/10/25 08:59 Dextrose/Lactated Ringer's 1,000 ml @ 200 mls/hr Q5H IV 06/09/25 15:30 06/10/25 09:31 DC 06/10/25 07:39 200 MLS/HR Dextrose/Sodium Chloride 1,000 ml @ 0 mls/hr AD IV 06/08/25 22:30 06/09/25 15:04 DC 06/09/25 10:47 175 MLS/HR Dextrose/Sodium Chloride 1,000 ml @ 300 mls/hr Q3H20M IV 06/09/25 06:30 06/09/25 10:49 DC 06/09/25 06:17 300 MLS/HR Glucagon (Glucagon 1mg Kit) 1 mg AD PRN IM HYPOGLYCEMIA PROTOCOL 06/10/25 09:00 07/10/25 08:59 Heparin Sodium (Porcine) (HEParin 5,000 UNIT VIAL) 5,000 unit BID SQ 06/09/25 09:00 07/09/25 08:59 06/10/25 08:05 5,000 UNIT Hydralazine HCl (APRESOLine 20MG INJ) 10 mg Q6H PRN IV For:SBP above 160;DBP above 90 06/09/25 01:00 07/09/25 00:59 06/10/25 07:51 10 MG Hydromorphone HCl (DiLAUDid 0.5MG INJ) 0.25 mg Q4H PRN IVP SEVERE PAIN (7-10) 06/09/25 01:00 06/14/25 00:59 Insulin Glargine (LANtus 100 UNITS/ML 10 ML VIAL) 10 units DAILY SQ 06/10/25 07:30 07/10/25 07:29 06/10/25 07:39 10 UNITS Insulin Glargine (LANtus 100 UNITS/ML 10 ML VIAL) 10 units DAILY SQ 06/10/25 16:00 06/10/25 07:21 DC Insulin Human Regular (humuLIN R 100 UNIT/ML 3ML) INSULIN SLIDING SCAL... ACHS SQ 06/10/25 11:30 07/10/25 11:29 Insulin Human Regular 100 unit/ Sodium Chloride 101 ml @ 0 mls/hr PROTOCOL IV 06/08/25 22:30 06/10/25 08:51 DC 06/09/25 12:22 8.2 MLS/HR Lactated Ringer's 1,000 ml @ 350 mls/hr Q2H52M IV 06/09/25 00:00 06/09/25 10:49 DC 06/09/25 04:42 350 MLS/HR Lactulose (Constulose 20gm/ 30ml Udcup) 20 gm BID PRN PO CONSTIPATION 06/09/25 01:00 07/09/25 00:59 Magnesium Sulfate 50 ml @ 0 mls/hr PROTOCOL IV 06/08/25 22:30 06/10/25 08:51 DC 06/10/25 03:55 25 MLS/HR Ondansetron HCl (zoFRAN 4MG INJ) 4 mg Q6H PRN IV NAUSEA/VOMITING 06/09/25 01:00 07/09/25 00:59 06/10/25 10:20 4 MG Pantoprazole Sodium (PROTonix 40MG INJ) 40 mg DAILY IV 06/09/25 09:00 07/09/25 08:59 06/10/25 08:04 40 MG Piperacillin Sod/ Tazobactam Sod (Zosyn 3.375gm+NS 50ml) 3.375 gm Q12H IV 06/09/25 01:00 06/09/25 10:49 DC 06/09/25 02:23 3.375 GM Potassium Chloride/Dextrose/ Sod Cl 1,000 ml @ 0 mls/hr AD IV 06/08/25 22:30 06/10/25 08:51 DC Potassium Chloride/Sodium Chloride 1,000 ml @ 0 mls/hr PROTOCOL IV 06/08/25 23:00 06/10/25 08:51 DC Potassium Chloride 100 ml @ 100 mls/hr AD PRN IV POTASSIUM PROTOCOL 06/09/25 15:30 07/09/25 15:29 Potassium Chloride (K-Dur/Klor-Con 20meq) 20 meq AD PRN PO POTASSIUM PROTOCOL 06/09/25 15:30 07/09/25 15:29 06/10/25 07:38 20 MEQ Potassium Chloride (KCl 10% Elixir 20meq/15ml) 20 meq AD PRN PO POTASSIUM PROTOCOL 06/09/25 15:30 07/09/25 15:29 06/09/25 15:27 20 MEQ Sodium Chloride 1,000 ml @ 200 mls/hr PROTOCOL IV 06/08/25 22:30 06/10/25 08:51 DC 06/08/25 22:55 200 MLS/HR Vancomycin HCl 250 ml @ 125 mls/hr Q24H IV 06/09/25 23:00 06/09/25 10:39 DC Vancomycin HCl (Vancomycin Protocol) 1 each AD IV 06/08/25 22:30 06/09/25 10:39 DC DIAGNOSTICS / RADIOLOGY: [ ] ASSESSMENT: Diabetic ketoacidosis, POA Sepsis, POA, by clinical sepsis criteria, heart rate 117, WBCs 19.7, respirations 29, lactic acid 3.3 Leukocytosis, POA Hyperkalemia, POA Hyperlactatemia, POA JAYLIN versus CKD, POA, last known baseline creatinine is from 2019 hypertension PLAN: Neurological: Hourly neurochecks Cardiovascular: MAP goal greater than 65 mmHg Monitor for arrhythmias and blood pressure Respiratory: Keep O2 sats greater than 92% Follow-up with pulm crit Gastrointestinal: Protonix 40 mg IV daily for prophylaxis Advance diet as tolerated Renal: Replete electrolytes as per protocol Trend electrolytes as per protocol Trend a.m. BNP Hemo/Onc: Daily CBC DVT prophylaxis with SCDs only due to hematemesis on outpatient Endocrine: Continue insulin drip Glucose checks as per Hypoglycemia protocol ID: Continue vanc and cefepime Follow up cultures Trend WBCs CODE STATUS: Full code Discussion: Case was discussed with the patient Case was discussed with bedside nurse Critical care Attention time: greater than 35 minutes SOL OGLDEN IV, MD Jun 10, 2025 10:55
--- NOTE | 2025-06-10 11:56 | NUR ---
dr Pan informed bs [id number] ss given no further orders
[2025-06-10 13:05] LABS: CREATININE 0.8 mg/dL (0.5-1.0); GLOMERULAR FILTR. RATE CALC 99.0 mL/min (>90); GLUCOSE,RANDOM 381.0 mg/dL (70-105); SODIUM SERUM 142.0 mmol/L (136-145); UREA NITROGEN, BLOOD 8.0 mg/dL (7-18)
[2025-06-10 17:15] LABS: CREATININE 0.8 mg/dL (0.5-1.0); GLOMERULAR FILTR. RATE CALC 99.0 mL/min (>90); GLUCOSE,RANDOM 258.0 mg/dL (70-105); SODIUM SERUM 142.0 mmol/L (136-145); UREA NITROGEN, BLOOD 7.0 mg/dL (7-18)
--- NOTE | 2025-06-10 17:49 | NUR ---
DCP: INITIAL ASSESSMENT Patient lives with spouse, John Mora. She has no home services. Patient has BPM, and glucometer at home. She uses insulin. Patient is able to complete ADLs independently and drives. She has no PC but follows up with MD in [place] as needed. Pharmacy is [facility] in [place]. Patient voiced no safety concerns regarding returning home and states she has no difficulty with housing or buying food. DCP is home. Patient has no insurance or benefits. She was provided with community resources for post hospitalization follow up. Patient was also provided with Good RX card for prescriptions and educated on [employer] $4 medication program and [facility] $5 medication program. Patient is being assisted by [facility] for financial matters. Addendum: 06/10/25 at 1752 by ANGLE CARRANZA SS Amended: Links added.
--- NOTE | 2025-06-10 17:52 | NUR ---
EMERGENCY CONTACT/ADDRESS John Morgan (spouse) [phone] Day Monae (mother) [phone] Correct patient address: [address] [place] [id number]
[2025-06-10 20:57] LABS: CREATININE 0.7 mg/dL (0.5-1.0); GLOMERULAR FILTR. RATE CALC 116.0 mL/min (>90); GLUCOSE,RANDOM 115.0 mg/dL (70-105); SODIUM SERUM 144.0 mmol/L (136-145); UREA NITROGEN, BLOOD 6.0 mg/dL (7-18)
[2025-06-11 00:17] VITALS: BP 153/90; PULSE 85; RESP 19; TEMP 98.7
[2025-06-11 04:05] VITALS: BP 165/90; PULSE 80; RESP 18; TEMP 98.3
[2025-06-11 05:16] LABS: IMMATURE GRANULOCYTE ABSOLUTE 0.04 K/uL (0-1); NUCLEATED RED BLOOD CELLS 0.0 % (0.0-0.19); PLATELET COUNT (AUTO) 116 K/uL (130-400); RED BLOOD CELL COUNT(AUTO) 3.42 MIL/uL (4.00-5.50); RED CELL DISTRIBUTION WIDTH 14.0 % (11.0-15.5); WHITE BLOOD COUNT (AUTO) 5.6 K/uL (4.8-10.8)
[2025-06-11 05:28] VITALS: BP 146/84; PULSE 95
[2025-06-11 05:53] LABS: CREATININE 0.6 mg/dL (0.5-1.0); GLOMERULAR FILTR. RATE CALC 121.0 mL/min (>90); SODIUM SERUM 135.0 mmol/L (136-145); UREA NITROGEN, BLOOD 11.0 mg/dL (7-18)
[2025-06-11 05:56] LABS: GLUCOSE,RANDOM 516.0 mg/dL (70-105)
[2025-06-11 07:53] VITALS: BP 150/90; PULSE 93; RESP 16; TEMP 98.1
[2025-06-11 09:04] LABS: CREATININE 1.0 mg/dL (0.5-1.0); GLOMERULAR FILTR. RATE CALC 76.0 mL/min (>90); GLUCOSE,RANDOM 353.0 mg/dL (70-105); SODIUM SERUM 141.0 mmol/L (136-145); UREA NITROGEN, BLOOD 13.0 mg/dL (7-18)
[2025-06-11] MEDS: amLODIPine 5 MG TAB PO SCH (10:51)
[2025-06-11 11:11] VITALS: BP 134/78; PULSE 100; RESP 16; TEMP 98.4
--- NOTE | 2025-06-11 12:30 | NUR ---
PATIENT ASSESSMENT All systems within normal limits with exception of continued elevated blood glucose levels. Inquired about diet night of 06/10/25. Patient reports that blood glucose levels were elevated this morning due to receiving an apple juice which was used to dissolve potassium. Latest potassium recheck at 3.6. Instructed patient that would require replacement of 2 oral doses of 20mEq Potassium. Patient refused coverage and stated that she is anticipating discharge once physicians round. Patient also reported that her last bowel movement was this morning. Continues on rocephin [id number].
[2025-06-11 13:32] LABS: CREATININE 0.7 mg/dL (0.5-1.0); GLOMERULAR FILTR. RATE CALC 116.0 mL/min (>90); GLUCOSE,RANDOM 316.0 mg/dL (70-105); SODIUM SERUM 140.0 mmol/L (136-145); UREA NITROGEN, BLOOD 11.0 mg/dL (7-18)
--- NOTE | 2025-06-11 14:07 | PN ---
[facility] PROGRESS NOTE Date of Service: Jun 11, 2025 Time of Service: 14:06 SUBJECTIVE: nion gap remains open this morning. She remains on insulin drip. Leukocytosis is improving on broad-spectrum IV antibiotics. 06/10 anion gap has closed. Patient has been transitioned to subcutaneous insulin. Patient remains on IV ceftriaxone empirically for UTI based on patient's HPI. Patient is tolerating clear liquid diet. 06/11 sugars are still uncontrolled. We will continue to titrate insulin regimen. REVIEW OF SYSTEMS CONSTITUTIONAL: Denies fevers, chills, or night sweats. No unintentional weight loss reported. NEUROLOGICAL: Denies headache, amaurosis fugax, motor weakness, sensory deficit , vertigo/spinning sensation, gait abnormalities, or tremors. ENT: No hearing loss, otalgia, otorrhea, rhinitis, rhinorrhea, hoarseness, or sore throat. CARDIOVASCULAR: Denies any exertional angina, dyspnea on exertion, orthopnea, paroxysmal nocturnal dyspnea, palpitations, life-threatening arrhythmias, claudication. PULMONARY: Denies any shortness of breath, cough, phlegm/sputum, hemoptysis, pleuritic chest pain. SLEEP: Denies morning headaches, daytime somnolence or napping. Denies difficulty falling asleep, staying asleep, waking from sleep. Denies knowledge of snoring. GASTROINTESTINAL: Denies any type of dysphagia to either liquids or solids. Denies nausea, vomiting, pyrosis, early satiety, abdominal pain, diarrhea, constipation, or changes in stool consistency or caliber. Denies coffee-ground emesis, hematemesis, hematochezia, or melanotic stools. GENITOURINARY: Denies frequency, urgency, nocturia, hematuria or incontinence (Storage/Irritative symptoms.) Low urinary stream, straining to void, urinary intermittency or hesitancy, splitting of the voiding stream, terminal dribbling. ENDOCRINOLOGIC: Denies polyuria, polydipsia, polyphagia or heat/cold intolerances. HEMATOLOGIC: Denies thrombophilia/previous clots, or coagulopathy/bleeding disorders. ONCOLOGIC: Denies personal history of malignancy. DERMATOLOGIC: Denies rashes or pruritus. PSYCHIATRIC: Denies any suicidal or homicidal ideation. Denies hallucinations. PHYSICAL EXAM GENERAL APPEARANCE: The patient is awake, alert, and oriented, in no acute cardiopulmonary distress. NEUROLOGICAL: Cranial nerves II-XII grossly intact. Motor is 5/5 in bilateral upper and lower extremities proximal to distal. No sensory deficits. HEENT: Face is symmetric. Pupils are equal and reactive. Extraocular movements are intact. NECK: Supple. No JVD. No thyromegaly. No submental, submandibular, pre- /postauricular, occipital or supraclavicular lymphadenopathy. CHEST: Normal chest expansion. No Telemetry. LUNGS: Absence of any rales, rhonchi or any wheezing. CARDIOVASCULAR: Regular. S1 and S2 normal. No appreciable rubs, murmurs or gallops. ABDOMEN: Soft, nontender, and nondistended. There is no rebound, voluntary guarding, or rigidity. : Deferred. No [place]. EXTREMITIES: Non-edematous and not cyanotic. No clubbing. Good capillary refill. SKIN: No skin breakdown. Vital Signs (last 8hr) Date Time Temp Pulse Resp B/P (MAP) Pulse Ox O2 Delivery O2 Flow Rate FiO2 06/11/25 11:11 98.4 100 16 134/78 100 Room Air 06/11/25 07:53 98.1 93 16 150/90 98 Room Air LABS: Laboratory: Test 06/11/25 13:02 06/11/25 10:43 06/11/25 05:01 06/10/25 06:51 Range/Units Sodium Level 140 136-145 mmol/L Potassium Level 3.7 3.5-5.1 mmol/L Chloride Level 104 101-111 mmol/L Carbon Dioxide Level 19 L 21-32 mmol/L Blood Urea Nitrogen 11 7-18 mg/dL Creatinine 0.7 0.5-1.0 mg/dL Glomerular Filtration Rate Calc 116 >90 mL/min Random Glucose 316 H 70-105 mg/dL Total Calcium 8.5 8.5-10.1 mg/dL Whole Blood Glucose 324 H 70-110 MG/DL Bedside Glucose Comment Notified Nurse White Blood Count 5.6 4.8-10.8 K/uL Red Blood Count 3.42 L 4.00-5.50 MIL/uL Hemoglobin 9.6 L 12.0-16.0 g/dL Hematocrit 30.4 L 36-48 % Mean Corpuscular Volume 88.9 79-99 fL Mean Corpuscular Hemoglobin 28.1 27.0-33.0 pg Mean Corpuscular Hemoglobin Concent 31.6 L 32.0-36.0 g/dL Red Cell Distribution Width 14.0 11.0-15.5 % Platelet Count 116 #L 130-400 K/uL Mean Platelet Volume 10.5 7.5-10.5 fL Immature Granulocyte % (Auto) 0.7 0-1 % Neutrophils (%) (Auto) 80.1 H 40.0-77.0 % Lymphocytes (%) (Auto) 12.0 L 21.0-51.0 % Monocytes (%) (Auto) 6.6 3.0-13.0 % Eosinophils (%) (Auto) 0.4 0.0-8.0 % Basophils (%) (Auto) 0.2 0.0-5.0 % Neutrophils # (Auto) 4.5 1.8-7.7 K/uL Lymphocytes # (Auto) 0.7 L 1.0-4.8 K/uL Monocytes # (Auto) 0.4 0.1-1.0 K/uL Eosinophils # (Auto) 0.02 0.00-0.70 K/uL Basophils # (Auto) 0.01 0.00-0.20 K/uL Absolute Immature Granulocyte (auto 0.04 0-1 K/uL Nucleated Red Blood Cells 0.0 0.0-0.19 % Magnesium Level 2.00 1.80-2.40 mg/dL Total Bilirubin 0.3 0.2-1.0 mg/dL Aspartate Amino Transf (AST/SGOT) 10 10-37 U/L Alanine Aminotransferase (ALT/SGPT) 11 L 12-78 U/L Alkaline Phosphatase 88 50-136 U/L Total Protein 5.8 L 6.0-8.3 g/dL Albumin 2.5 L 3.5-5.0 g/dL Current Medications Medications (Trade) Dose Ordered Sig/Eric Route PRN Reason Start Time Stop Time Status Last Admin Dose Admin Acetaminophen (TYLenol 325MG TAB) 650 mg Q6H PRN PO TEMPERATURE GREATER THAN 101.5 06/09/25 01:00 07/09/25 00:59 Amlodipine Besylate (NorvASC 5MG TAB) 5 mg DAILY PO 06/11/25 09:00 07/11/25 08:59 06/11/25 10:51 5 MG Cefepime HCl (MAXipime 1 GM vial) 1 gm Q12H IVPB 06/08/25 22:30 06/09/25 10:49 DC 06/08/25 22:52 1 GM Ceftriaxone Sodium (Rocephin 2gm Inj) 2 gm Q24H IVPB 06/09/25 11:00 06/19/25 10:59 06/11/25 11:29 2 GM Dextrose (D50w) 50 ml AD PRN IV HYPOGLYCEMIA PROTOCOL 06/10/25 09:00 07/10/25 08:59 Dextrose/Lactated Ringer's 1,000 ml @ 200 mls/hr Q5H IV 06/09/25 15:30 06/10/25 09:31 DC 06/10/25 07:39 200 MLS/HR Dextrose/Sodium Chloride 1,000 ml @ 0 mls/hr AD IV 06/08/25 22:30 06/09/25 15:04 DC 06/09/25 10:47 175 MLS/HR Dextrose/Sodium Chloride 1,000 ml @ 300 mls/hr Q3H20M IV 06/09/25 06:30 06/09/25 10:49 DC 06/09/25 06:17 300 MLS/HR Glucagon (Glucagon 1mg Kit) 1 mg AD PRN IM HYPOGLYCEMIA PROTOCOL 06/10/25 09:00 07/10/25 08:59 Heparin Sodium (Porcine) (HEParin 5,000 UNIT VIAL) 5,000 unit BID SQ 06/09/25 09:00 07/09/25 08:59 06/11/25 10:54 5,000 UNIT Hydralazine HCl (APRESOLine 20MG INJ) 10 mg Q6H PRN IV For:SBP above 160;DBP above 90 06/09/25 01:00 07/09/25 00:59 06/11/25 03:45 10 MG Hydromorphone HCl (DiLAUDid 0.5MG INJ) 0.25 mg Q4H PRN IVP SEVERE PAIN (7-10) 06/09/25 01:00 06/14/25 00:59 Insulin Glargine (LANtus 100 UNITS/ML 10 ML VIAL) 10 units DAILY SQ 06/10/25 07:30 06/11/25 14:00 DC 06/11/25 10:53 10 UNITS Insulin Glargine (LANtus 100 UNITS/ML 10 ML VIAL) 10 units DAILY SQ 06/10/25 16:00 06/10/25 07:21 DC Insulin Glargine (LANtus 100 UNITS/ML 10 ML VIAL) 20 units BID SQ 06/11/25 21:00 06/11/25 14:04 DC Insulin Glargine (LANtus 100 UNITS/ML 10 ML VIAL) 30 units HS SQ 06/11/25 21:00 07/11/25 20:59 UNV Insulin Human Lispro (HumaLOG LISpro 100 UNIT/ML 3ML) 10 unit TIDAC SQ 06/11/25 17:00 07/11/25 16:59 Insulin Human Lispro (HumaLOG LISpro 100 UNIT/ML 3ML) INSULIN SLIDING SCAL... ACHS SQ 06/11/25 16:30 07/11/25 16:29 Insulin Human Regular (humuLIN R 100 UNIT/ML 3ML) INSULIN SLIDING SCAL... ACHS SQ 06/10/25 11:30 06/11/25 14:01 DC 06/11/25 06:22 20 UNIT Insulin Human Regular 100 unit/ Sodium Chloride 101 ml @ 0 mls/hr PROTOCOL IV 06/08/25 22:30 06/10/25 08:51 DC 06/09/25 12:22 8.2 MLS/HR Lactated Ringer's 1,000 ml @ 350 mls/hr Q2H52M IV 06/09/25 00:00 06/09/25 10:49 DC 06/09/25 04:42 350 MLS/HR Lactulose (Constulose 20gm/ 30ml Udcup) 20 gm BID PRN PO CONSTIPATION 06/09/25 01:00 07/09/25 00:59 Magnesium Sulfate 50 ml @ 0 mls/hr PROTOCOL IV 06/08/25 22:30 06/10/25 08:51 DC 06/10/25 03:55 25 MLS/HR Ondansetron HCl (zoFRAN 4MG INJ) 4 mg Q6H PRN IV NAUSEA/VOMITING 06/09/25 01:00 07/09/25 00:59 06/10/25 10:20 4 MG Pantoprazole Sodium (PROTonix 40MG INJ) 40 mg DAILY IV 06/09/25 09:00 07/09/25 08:59 06/11/25 10:54 40 MG Piperacillin Sod/ Tazobactam Sod (Zosyn 3.375gm+NS 50ml) 3.375 gm Q12H IV 06/09/25 01:00 06/09/25 10:49 DC 06/09/25 02:23 3.375 GM Potassium Chloride/Dextrose/ Sod Cl 1,000 ml @ 0 mls/hr AD IV 06/08/25 22:30 06/10/25 08:51 DC Potassium Chloride/Sodium Chloride 1,000 ml @ 0 mls/hr PROTOCOL IV 06/08/25 23:00 06/10/25 08:51 DC Potassium Chloride 100 ml @ 100 mls/hr AD PRN IV POTASSIUM PROTOCOL 06/09/25 15:30 07/09/25 15:29 Potassium Chloride (K-Dur/Klor-Con 20meq) 20 meq AD PRN PO POTASSIUM PROTOCOL 06/09/25 15:30 07/09/25 15:29 06/11/25 00:04 20 MEQ Potassium Chloride (KCl 10% Elixir 20meq/15ml) 20 meq AD PRN PO POTASSIUM PROTOCOL 06/09/25 15:30 07/09/25 15:29 06/10/25 17:43 20 MEQ Sodium Chloride 1,000 ml @ 200 mls/hr PROTOCOL IV 06/08/25 22:30 06/10/25 08:51 DC 06/08/25 22:55 200 MLS/HR Vancomycin HCl 250 ml @ 125 mls/hr Q24H IV 06/09/25 23:00 06/09/25 10:39 DC Vancomycin HCl (Vancomycin Protocol) 1 each AD IV 06/08/25 22:30 06/09/25 10:39 DC DIAGNOSTICS / RADIOLOGY: [ ] ASSESSMENT: Diabetic ketoacidosis, POA Sepsis, POA, by clinical sepsis criteria, heart rate 117, WBCs 19.7, resp irations 29, lactic acid 3.3 Leukocytosis, POA Hyperkalemia, POA Hyperlactatemia, POA JAYLIN versus CKD, POA, last known baseline creatinine is from 2019 hypertension PLAN: Neurological: Hourly neurochecks Cardiovascular: MAP goal greater than 65 mmHg Monitor for arrhythmias and blood pressure Respiratory: Keep O2 sats greater than 92% Follow-up with pulm crit Gastrointestinal: Protonix 40 mg IV daily for prophylaxis Advance diet as tolerated Renal: Replete electrolytes as per protocol Trend electrolytes as per protocol Trend a.m. BNP Hemo/Onc: Daily CBC DVT prophylaxis with SCDs only due to hematemesis on outpatient Endocrine: Increase Lantus to 30 units HS Switch sliding scale to lispro level one Consider pre meal insulin Glucose checks as per Hypoglycemia protocol ID: Continue vanc and cefepime Follow up cultures Trend WBCs CODE STATUS: Full code Discussion: Case was discussed with the patient Case was discussed with bedside nurse Critical care Attention time: greater than 35 minutes SOL GOLDEN IV, MD Jun 11, 2025 14:07
--- NOTE | 2025-06-11 14:25 | DS ---
Discharge Summary Hospital Course Summary: I had a long conversation with the patient about her diabetes. She is well informed regarding long-acting versus short-acting insulin. She knows her doses and her usual sugar levels. She understands how she agree treats and beverages we will effect her sugars. She reports last night she had no other option then to drink her potassium with apple juice which is why her sugars are elevated. She is asking to be discharged because she needs to work. I discussed metformin and its benefits. She agrees to take metformin after I address concerns about side effects. She will be taking Lantus 18 units HS and lispro 6 units pre meal. Patient should follow up with PCP. Medications as per med rec. Assessment/Plan: ASSESSMENT: Diabetic ketoacidosis, POA Sepsis, POA, by clinical sepsis criteria, heart rate 117, WBCs 19.7, respirations 29, lactic acid 3.3 Leukocytosis, POA Hyperkalemia, POA Hyperlactatemia, POA JAYLIN versus CKD, POA, last known baseline creatinine is from 2018 hypertension PLAN: Neurological: Hourly neurochecks Cardiovascular: MAP goal greater than 65 mmHg Monitor for arrhythmias and blood pressure Respiratory: Keep O2 sats greater than 92% Follow-up with pulm crit Gastrointestinal: Protonix 40 mg IV daily for prophylaxis Advance diet as tolerated Renal: Replete electrolytes as per protocol Trend electrolytes as per protocol Trend a.m. BNP Hemo/Onc: Daily CBC DVT prophylaxis with SCDs only due to hematemesis on outpatient Endocrine: Increase Lantus to 30 units HS Switch sliding scale to lispro level one Consider pre meal insulin Glucose checks as per Hypoglycemia protocol ID: Continue vanc and cefepime Follow up cultures Trend WBCs CODE STATUS: Full code Discussion: Case was discussed with the patient Case was discussed with bedside nurse Critical care Attention time: greater than 35 minutes Home Medications: Reported Medications Amlodipine Besylate (Amlodipine Besylate) 5 Mg Tablet, 1 TAB PO DAILY for 30 Days, #30 TAB 0 Refills 06/10/25 Time spent arranging discharge: 31-60 minutes SOL GOLDEN IV, MD Jun 11, 2025 14:25
[2025-06-11 15:49] VITALS: BP 136/85; PULSE 94; RESP 18; TEMP 98.1
--- NOTE | 2025-06-11 16:02 | NUR ---
ELEVATED BLOOD SUGAR Patient blood glucose = 425 Physician notified. Will administer 16 units of sliding scale. Proceed with discharge. Patient has short acting insulin to manage elevated blood glucose levels. Prescription will be provided at discharge for addition/changes to hyperglycemic medications. Addendum: 06/11/25 at 1843 by TAZ SCHUMACHER RN RN correction, blood glucose = 405. 16 units administered
--- NOTE | 2025-06-11 18:30 | NUR ---
DISCHARGE NOTE IV and ID bands removed. Discharge instructions reviewed with patient and spouse. Patient encouraged to establish primary care physician for better blood glucose management, evaluation, and treatment. Personal belongings taken with patient. Taken down to personal vehicle.
== END 2025-06-11 18:30 | disposition home or self-care (01) | DRG 871 ==
LOC: EDH 21:34 → EDHIP 21:35 → 2CH 06-09 02:01 → 4DH 06-10 10:00
PROVIDERS: ADMIT Internal Medicine; ATTEND Internal Medicine
DX: A41.9 Sepsis, unspecified organism (principal); E10.10 Type 1 diabetes mellitus with ketoacidosis without coma; N17.9 Acute kidney failure, unspecified; E87.1 Hypo-osmolality and hyponatremia; E87.5 Hyperkalemia; I10 Essential (primary) hypertension; E86.9 Volume depletion, unspecified; I25.10 Atherosclerotic heart disease of native coronary artery without angina pectoris; Z51.5 Encounter for palliative care; Z79.4 Long term (current) use of insulin
CPT/HCPCS: 36415; 36600; 71045; 80048; 80053; 80076; 81001; 82010; 82435; 82570; 82803; 82947; 82948; 83605; 83690; 83735; 83935; 84100; 84132; 84145; 84295; 84300; 84484; 84703; 85025; 85610; 85730; 87040; 87086; 87491; 87591; 93005; 96361; 96374; 99291; G0378; J0360; J0612; J0692; J0696; J1644; J1815; J2405; J2470; J2543; J3475; J7030; J7042; J3375